=== PATIENT | female | born 1950 | race Caucasian/White ===

== ENCOUNTER → 2021-06-30 12:34 | Outpatient (BNVA) | payer MEDICARE, SELFPAY | PROVIDERS: Visit Provider Nurse Practitioner | DX: J02.9 Acute pharyngitis, unspecified (principal) | CPT/HCPCS: 87880 ==

== ENCOUNTER → 2021-07-13 14:43 | Outpatient (BNVA) | payer MEDICARE, SELFPAY | PROVIDERS: Visit Provider Nurse Practitioner | DX: Z20.822 Contact with and (suspected) exposure to COVID-19 (principal) | CPT/HCPCS: 87635 ==

== ENCOUNTER → 2021-07-17 11:08 | Outpatient (BNVA) | payer MEDICARE, SELFPAY | PROVIDERS: Visit Provider Nurse Practitioner Family | DX: R05.9 Cough, unspecified (principal); R50.9 Fever, unspecified | CPT/HCPCS: 87400 ==

== ENCOUNTER 2021-07-21 00:53 | Emergency (ER) | payer MEDICARE, SELFPAY ==
[2021-07-21 00:59] VITALS: BP 153/81; PULSE 83; RESP 18; TEMP 36.9; O2SAT 93; BMI 31.3
--- NOTE | 2021-07-21 01:07 | XRR_ITS ---
PROCEDURE INFORMATION: Exam: XR Chest Exam date and time: 07/21/2021 1:07 AM Age: 70 years old Clinical indication: Dyspnea; Additional info: Short of breath TECHNIQUE: Imaging protocol: XR of the chest. Views: 1 view. COMPARISON: No relevant prior studies available. FINDINGS: Lungs: There are mildly increased peribronchial markings present bilaterally and some increased interstitial opacity seen in the right mid and lower hemithorax and left lower hemithorax. Some consolidation is seen in the retrocardiac region as well. These findings are compatible with a bilateral interstitial pneumonia. Pulmonary edema could have this appearance. Pleural spaces: Unremarkable. No pleural effusion. No pneumothorax. Heart/Mediastinum: Unremarkable. No cardiomegaly. Bones/joints: Degenerative changes are seen within the glenohumeral joints bilaterally. XR/XR chest 1V portable [id number] IMPRESSION: Interstitial opacities in the lower hemithoraces bilaterally with consolidation present in the retrocardiac region, findings compatible with a bilateral interstitial pneumonia. Pulmonary edema could have this appearance.
[2021-07-21 01:58] LABS: Hematocrit 41.7 % (37.0-47.0); Hemoglobin 13.2 g/dL (11.5-15.3); Lymphocytes # 0.4 10^3/uL (0.8-4.8); Lymphocytes % 5.6 %; Mean Corpuscular HGB Conc 31.7 g/dL (30.0-36.0); Mean Corpuscular Hemoglobin 27.8 pg (28.0-34.0); Mean Platelet Volume 9.8 fL (7.4-10.4); Monocytes # 0.3 10^3/uL (0.2-0.9); Monocytes % 4.8 %; Neutrophils # 6.33 10^3/uL (1.8-7.7); Neutrophils % 89.2 %; Nucleated Red Blood Cells % 0 %; Platelet Count 185 10^3/cmm (130-400); Red Blood Count 4.74 10^6/uL (4.1-5.3); Red Cell Distribution Width 13.7 % (12.1-15.1); White Blood Count 7.1 10^3/uL (4.0-10.0)
[2021-07-21 02:18] LABS: Troponin T (5th) Once 13 ng/L (0-10)
[2021-07-21 02:26] LABS: Add Urine Microscopic? NO; Charge for UA Resulting for Rev
[2021-07-21 02:35] LABS: Alanine Aminotransferase 15 U/L (0-33); Albumin Level 3.6 g/dL (3.5-5.2); Alkaline Phosphatase 49 IU/L (35-105); Anion Gap 17.1 (5-19); Aspartate Amino Transferase 32 U/L (0-32); Blood Urea Nitrogen 23 mg/dL (8-23); C Reactive Protein 100.3 mg/L (0.0-4.9); Calcium 8.4 mg/dL (8.5-10.5); Carbon Dioxide 25 mmol/L (22-29); Chloride 99 mmol/L (98-107); Globulin 3.7 g/dL (1.3-4.6); Glucose 124 mg/dL (65-115); Osmolality Calculated 289 mOsm/kg (285-295); Potassium 4.1 mmol/L (3.5-5.1); Sodium 137 mmol/L (136-145); Total Bilirubin 0.4 mg/dL (0.15-1.2); Total Protein 7.3 g/dL (6.6-8.7)
[2021-07-21 02:50] LABS: Bilirubin Urine Neg (Negative); Blood Urine Neg (Negative); Glucose Urine UA Norm (Normal); Ketones Urine Negative (Negative); Leukocyte Esterase Urine Negative (Negative); Nitrate Urine Negative (Negative); Protein Urine Neg (Negative); Urine Appearance Clear (CLEAR); Urine Color Yellow (Yellow); Urobilinogen Urine Norm (Negative); pH Urine 5 (5-7)
--- NOTE | 2021-07-21 02:56 | CTR_ITS ---
PROCEDURE INFORMATION: Exam: CTA Chest With Contrast Exam date and time: 07/21/2021 2:56 AM Age: 70 years old Clinical indication: Dyspnea; Additional info: SOB TECHNIQUE: Imaging protocol: Computed tomographic angiography of the chest with contrast. 3D rendering (Not supervised by radiologist): MIP and/or 3D reconstructed images were created by the technologist. Radiation optimization: All CT scans at this facility use at least one of these dose optimization techniques: automated exposure control; mA and/or kV adjustment per patient size (includes targeted exams where dose is matched to clinical indication); or iterative reconstruction. Contrast material: OMNI 350; Contrast volume: 95 ml; Contrast route: INTRAVENOUS (IV); COMPARISON: CR (CHEST, ) 07/21/2021 2:49 AM RADIATION DOSE METRICS: Total DLP (mGy-cm): 564.78 FINDINGS: Pulmonary arteries: Normal. No pulmonary emboli. Aorta: Unremarkable. No aortic aneurysm. No aortic dissection. Lungs: A prominent calcifications seen within the left upper hemithorax measuring up to 12.1 mm. There patchy bilateral ground-glass opacities present, findings compatible with a patchy bilateral interstitial pneumonia. Pleural spaces: Unremarkable. No pneumothorax. No pleural effusion. Heart: Unremarkable. No cardiomegaly. No pericardial effusion. Lymph nodes: Unremarkable. No enlarged lymph nodes. Bones/joints: Unremarkable. No acute fracture. Soft tissues: Unremarkable. CT/CT angio chest PE protcl [id number] IMPRESSION: 1. There is no evidence for pulmonary emboli. 2. Patchy bilateral ground-glass opacities compatible with bilateral interstitial pneumonia. Commonly reported imaging features of COVID-19 pneumonia are present. Other processes such as influenza pneumonia and organizing pneumonia, as can be seen with drug toxicity and connective tissue disease, can cause a similar imaging pattern. (Reference: Ge) REFERENCES: Ge Taylor, et al., Radiological Society of [place] Expert Consensus Statement on Reporting Chest CT Findings Related to COVID-19. Endorsed by the Society of Thoracic Radiology, the [employer], and RSNA. Published October 19, 2019.
[2021-07-21] MEDS: iohexol 350 mg/mL 100 mL Btl IV (03:18)
[2021-07-21 04:16] LABS: D Dimer 0.76 ug/mIFEU (0-0.59)
--- NOTE | 2021-07-21 04:20 | ED_ITS ---
HPI - SOB/Dyspnea General: Chief Complaint: Shortness of Breath/Dyspnea Stated Complaint: PT Thinks dehydrated Time Seen by Provider: 07/21/21 02:31 History of Present Illness: HPI Narrative: 70-year-old female has been ill over 10 days. She presents with shortness of breath that has worsened over several days. She denies significant fever. She tested negative last week for COVID-19. She was treated for streptococcal pharyngitis as she had had a sore throat. She was then given an antibiotic and steroids for pneumonia diagnosed clinically. Despite this, she has continued to have worsening shortness of breath. She has some generalized weakness as well, and feels that she is dehydrated as she has had little p.o. intake the last day or 2. MD elicited complaint: shortness of breath, cough and pain with inspiration Pertinent past history: other Onset (ago): day(s) Context: recent illness Timing: progressively worsening Severity: moderate Exacerbating factors: lying flat and exertion Relieving factors: rest Associated symptoms: Reports chest congestion, chest pain, cough, diaphoresis and nausea; Deny abdominal pain, extremity pain, fever(s), hemoptysis or vomiting Review of Systems Const: Reports: diaphoresis; Denies: fever(s) Card: Reports: chest pain Resp: Reports: chest congestion; Denies: hemoptysis GI: Reports: nausea; Denies: abdominal pain or vomiting Musc: Denies: extremity pain Physical Exam Const: COMMON NORMALS: no acute distress, patient oriented x3 and alert HENMT: COMMON NORMALS: normocephalic, atraumatic and Normal external nose present HEAD & SCALP: normocephalic and atraumatic FACE & SINUS: normal facial exam and face symmetric NOSE: Normal external nose present and Normal nares present Eye: COMMON NORMALS: Equal, round and reactive pupils present and EOMs intact bilaterally PUPIL: Yes Equal, round and reactive pupils present Resp: COMMON NORMALS: No use of accessory muscles and clear to auscultation bilaterally EFFORT & INSPECTION: Yes tachypneic AUSCULTATION: clear to auscultation bilaterally, no rales, no rhonchi and diminished lung sounds Cardio: COMMON NORMALS: regular rate and regular rhythm RATE: regular rate RHYTHM: regular rhythm GI: COMMON NORMALS: Normal to inspection, nondistended, normoactive bowel sounds present, Soft to palpation and non-tender PALPATION: Yes Soft to palpation Neuro: COMMON NORMALS: patient oriented x3 SENSORIUM/ORIENTATION: Yes alert Course Vital Signs: Vital signs: Vital Signs Temperature 98.5 F 07/21/21 00:59 Pulse Rate 78 07/21/21 08:14 Respiratory Rate 18 07/21/21 08:14 Blood Pressure 142/64 07/21/21 08:14 Pulse Oximetry 94 07/21/21 08:14 MDM - SOB/Dyspnea MDM Narrative: Medical decision making narrative: Chest x-ray shows bilateral pneumonitis. CTA is negative for pulmonary emboli, but again patchy bilateral groundglass opacities are noted. This is suggestive of COVID-19 or other atypical pneumonia. PCR is pending for COVID-19. Patient has failed outpatient treatment with Levaquin and prednisone. She is requiring oxygen now, on 3 L satting 92%. She does not normally require oxygen. Currently she is normotensive. She will be admitted for hypoxic respiratory failure with COVID- 19 pneumonia. Counseling the patient, and her daughter, that she would be on Covid precautions in the floor, and the daughter would not be able to stay with her in her room, the patient decided she wanted to go home, for going inpatient treatment for COVID-19. Order was written for home oxygen, and she was discharged Lab Data: Labs: Lab Results 07/21/21 07/21/21 07/21/21 01:45 01:45 01:45 WBC 7.1 10^3/uL 10^3/ uL (4.0-10.0) RBC 4.74 10^6/uL 10^6 /uL (4.1-5.3) Hgb 13.2 g/dL g/dL (11.5-15.3) Hct 41.7 % % (37.0-47.0) MCV 88.0 fl fl (81-99) MCH 27.8 pg L pg (28.0-34.0) MCHC 31.7 g/dL g/dL (30.0-36.0) RDW 13.7 % % (12.1-15.1) Plt Count 185 10^3/cmm 10^3 /cmm (130-400) MPV 9.8 fL fL (7.4-10.4) Neut % (Auto) 89.2 % % Lymph % (Auto) 5.6 % % Dickens % (Auto) 4.8 % % Eos % (Auto) 0.0 % % Baso % (Auto) 0.0 % % Neut # (Auto) 6.33 10^3/uL 10^3 /uL (1.8-7.7) Lymph # (Auto) 0.4 10^3/uL L 10^ 3/uL (0.8-4.8) Dickens # (Auto) 0.3 10^3/uL 10^3/ uL (0.2-0.9) Eos # (Auto) 0.0 10^3/uL 10^3/ uL (0.0-0.8) Baso # (Auto) 0.0 10^3/uL 10^3/ uL (0.0-0.1) Nucleated RBC % (a uto) 0 % % Nucleated RBCs # 0.0 /100WBC /100W BC D-Dimer Sodium 137 mmol/L mmol/L (136-145) Potassium 4.1 mmol/L mmol/L (3.5-5.1) Chloride 99 mmol/L mmol/L (98-107) Carbon Dioxide 25 mmol/L mmol/L (22-29) Anion Gap 17.1 (5-19) BUN 23 mg/dL mg/dL (8-23) Creatinine 1.1 mg/dL H mg/dL (0.5-0.9) GFR Calculation Not Reportable Glucose 124 mg/dL H mg/dL (65-115) Calculated Osmolal ity 289 mOsm/kg mOsm/ kg (285-295) Lactate 2.0 mmol/L mmol/L (0.5-2.2) Calcium 8.4 mg/dL L mg/dL (8.5-10.5) Total Bilirubin 0.4 mg/dL mg/dL (0.15-1.2) AST 32 U/L U/L (0-32) ALT 15 U/L U/L (0-33) Alkaline Phosphata se 49 IU/L IU/L (35-105) Troponin T Gen 5 n g/L C-Reactive Protein 100.3 mg/L H mg/L (0.0-4.9) Total Protein 7.3 g/dL g/dL (6.6-8.7) Albumin 3.6 g/dL g/dL (3.5-5.2) Globulin 3.7 g/dL g/dL (1.3-4.6) Urine Color Urine Appearance Urine pH Ur Specific Gravit y Urine Protein Urine Glucose (UA) Urine Ketones Urine Blood Urine Nitrate Urine Bilirubin Urine Urobilinogen Ur Leukocyte Reyna ase Coronavirus 229E ( PCR) SARS-CoV-2 (PCR) 07/21/21 07/21/21 07/21/21 01:45 01:51 03:57 WBC RBC Hgb Hct MCV MCH MCHC RDW Plt Count MPV Neut % (Auto) Lymph % (Auto) Dickens % (Auto) Eos % (Auto) Baso % (Auto) Neut # (Auto) Lymph # (Auto) Dickens # (Auto) Eos # (Auto) Baso # (Auto) Nucleated RBC % (a uto) Nucleated RBCs # D-Dimer Sodium Potassium Chloride Carbon Dioxide Anion Gap BUN Creatinine GFR Calculation Glucose Calculated Osmolal ity Lactate Calcium Total Bilirubin AST ALT Alkaline Phosphata se Troponin T Gen 5 n g/L 13 ng/L H ng/L (0-10) C-Reactive Protein Total Protein Albumin Globulin Urine Color Yellow (Yellow) Urine Appearance Clear (CLEAR) Urine pH 5 (5-7) Ur Specific Gravit y 1.010 (1.005-1.030) Urine Protein Neg (Negative) Urine Glucose (UA) Norm (Normal) Urine Ketones Negative (Negative) Urine Blood Neg (Negative) Urine Nitrate Negative (Negative) Urine Bilirubin Neg (Negative) Urine Urobilinogen Norm mg/dL mg/dL (Negative) Ur Leukocyte Reyna ase Negative (Negative) Coronavirus 229E ( PCR) Not detected (NOT DETECT) SARS-CoV-2 (PCR) Detected A (NOT DETECT) 07/21/21 03:57 WBC RBC Hgb Hct MCV MCH MCHC RDW Plt Count MPV Neut % (Auto) Lymph % (Auto) Dickens % (Auto) Eos % (Auto) Baso % (Auto) Neut # (Auto) Lymph # (Auto) Dickens # (Auto) Eos # (Auto) Baso # (Auto) Nucleated RBC % (a uto) Nucleated RBCs # D-Dimer 0.76 ug/mIFEU H u g/mIFEU (0-0.59) Sodium Potassium Chloride Carbon Dioxide Anion Gap BUN Creatinine GFR Calculation Glucose Calculated Osmolal ity Lactate Calcium Total Bilirubin AST ALT Alkaline Phosphata se Troponin T Gen 5 n g/L C-Reactive Protein Total Protein Albumin Globulin Urine Color Urine Appearance Urine pH Ur Specific Gravit y Urine Protein Urine Glucose (UA) Urine Ketones Urine Blood Urine Nitrate Urine Bilirubin Urine Urobilinogen Ur Leukocyte Reyna ase Coronavirus 229E ( PCR) SARS-CoV-2 (PCR) Discharge Plan Discharge Patient Disposition: Home Clinical Impression: Pneumonia due to 2019 novel coronavirus, Hypoxemia Condition: Fair Prescriptions: New Zofran 4 mg tablet 4 mg PO TID PRN (Reason: nausea and vomiting) 4 Days Qty: 12 RF: 0 acetaminophen 500 mg tablet 500 mg PO Q6H PRN (Reason: pain) 5 Days Qty: 20 RF: 0 prednisone 50 mg tablet 50 mg PO DAILY 3 Days RF: 0 No Action ketotifen fumarate [Zaditor] 0.025 % (0.035 %) drops 1 drp ophthalmic (eye) BID Qty: 5 RF: 1 levofloxacin 750 mg tablet 750 mg PO Q24H 7 Days Qty: 7 RF: 0 prednisone 20 mg tablet 40 mg PO DAILY 5 Days Qty: 10 RF: 0 albuterol sulfate 90 mcg/actuation HFA aerosol inhaler 2 inh inhalation Q4H Qty: 8.5 RF: 2 Discharge Orders: Discharge ED (Routine); Ordered 07/21/21 Ordered By: Dave James Other Ambulatory Orders: DME: Oxygen (Order) Location: None Selected Ordered By: Dave aJmes Discharge Diet: Advance as tolerated Discharge Activity: Resume usual activity Patient Instructions: COVID-19 (Coronavirus Disease 2019) (ED) Activity Restrictions/Additional Instructions: Come back to the emergency room if your symptoms worsen, have any shortness of breath, fever/chills, dehydration, inability tolerate p.o., any difficulty breathing, or any new or concerning complaints. Please return the emergency room if your pulse ox reads less than 88%. Use oxygen at home as instructed. Coding Level of Care Code ED [facility]ator [employer] [facility] for [facility] Fwd Exam Detailed
[2021-07-21 05:25] VITALS: BP 142/64; PULSE 78; RESP 18; O2SAT 94
[2021-07-21 05:41] LABS: Adenovirus Not Detected (NOT DETECT); Chlamydia Pneumoniae Not Detected (NOT DETECT); Coronavirus 229E,HKU1,NL63,OC4 Not Detected (NOT DETECT); Human Metapneumovirus Not Detected (NOT DETECT); Human Rhinovirus/Enterovirus Not Detected (NOT DETECT); Influenza A Not Detected (NOT DETECT); Influenza A H1 Not Detected (NOT DETECT); Influenza A H1-2009 Not Detected (NOT DETECT); Influenza A H3 Not Detected (NOT DETECT); Influenza B Not Detected (NOT DETECT); Mycoplasma Pneumoniae Not Detected (NOT DETECT); Parainfluenza Virus Type 1 Not Detected (NOT DETECT); Parainfluenza Virus Type 2 Not Detected (NOT DETECT); Parainfluenza Virus Type 3 Not Detected (NOT DETECT); Parainfluenza Virus Type 4 Not Detected (NOT DETECT); Respiratory Syncytial Virus A Not Detected (NOT DETECT); Respiratory Syncytial Virus B Not Detected (NOT DETECT); SARS-COV-2 Detected (NOT DETECT)
--- NOTE | 2021-07-21 06:39 | PC.NURSE ---
report given to matt ABARCA
[2021-07-21 06:46] VITALS: O2SAT 88
--- NOTE | 2021-07-21 07:45 | PC.NURSE ---
Patient given pulse oximetry for home use.
[2021-07-21 08:14] VITALS: BP 142/64; PULSE 78; RESP 18; O2SAT 94
--- NOTE | 2021-07-23 09:48 | DCPLANNER ---
manager party had message to schedule a follow up appointment for patient with primary care within the next 72 hours. Patient came back to ER and was admitted to the ICU, field case manager did not make a follow up appointment.
== END 2021-07-21 08:17 | disposition home or self-care (01) ==
PROVIDERS: Nurse Practitioner Family; Emergency Provider Emergency Medicine
DX: U07.1 COVID-19 (principal); J12.82 Pneumonia due to coronavirus disease 2019; R09.02 Hypoxemia
CPT/HCPCS: 71045; 71275; 80053; 81003; 83605; 84484; 85025; 85378; 86140; 87635; 99283; Q9967

== ENCOUNTER 2021-07-22 08:14 | Inpatient (IN) | payer MEDICARE, SELFPAY ==
[2021-07-22] VITALS (46 sets, daily range): BP systolic 91–147; BP diastolic 40–82; PULSE 39–101; RESP 8–41; TEMP 35.8–37.8; O2SAT 89–99; BMI 31.3
--- NOTE | 2021-07-22 08:40 | XR_ITS ---
WS: [id number] Portable AP upright chest, 07/22/2021 Clinical Data: COVID/acute resp failure Comparison: Portable chest, 07/21/2021 Findings: The bilateral pulmonary opacities have increased especially in the right upper lobe and lef t lower lobe. The heart remains enlarged. No nodules, masses or effusions are seen. Monitor leads are on the chest wall. The patient's clothing obscures minimal detail over the middle of the chest. XR/XR chest 1V portable [id number] Impression: Increasing bilateral pulmonary opacities consistent with pneumonia.
--- NOTE | 2021-07-22 08:40 | ECG_ITS ---
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 Measurements Intervals [place] Rate: 95 P: 22 UT: 153 QRS: -19 QRSD: 91 T: 0 QT: 315 QTc: 397 Interpretive Statements SINUS RHYTHM MODERATE VOLTAGE CRITERIA FOR LVH, CONSIDER NORMAL VARIANT [MEETS CRITERIA IN ONE OF: R(aVL), S(V1), R(V5), R(V5/V6)+S(V1)] No previous ECG available for comparison Electronically Signed On 07-22-2021 15:30:04 DETECTIVE NARCOTICS AND VICE by Radhika Peña M.D. [id number]
[2021-07-22 08:59] LABS: Basophils % 0.2 %; Hematocrit 41.7 % (37.0-47.0); Hemoglobin 13.3 g/dL (11.5-15.3); Lymphocytes # 0.7 10^3/uL (0.8-4.8); Lymphocytes % 10.9 %; Mean Corpuscular HGB Conc 31.9 g/dL (30.0-36.0); Mean Corpuscular Hemoglobin 27.6 pg (28.0-34.0); Mean Corpuscular Volume 86.5 fl (81-99); Mean Platelet Volume 9.5 fL (7.4-10.4); Monocytes # 0.4 10^3/uL (0.2-0.9); Monocytes % 6.5 %; Neutrophils # 5.43 10^3/uL (1.8-7.7); Neutrophils % 81.9 %; Nucleated Red Blood Cells % 0 %; Platelet Count 198 10^3/cmm (130-400); Red Blood Count 4.82 10^6/uL (4.1-5.3); Red Cell Distribution Width 13.9 % (12.1-15.1); White Blood Count 6.6 10^3/uL (4.0-10.0)
--- NOTE | 2021-07-22 09:06 | W.ED.COVID ---
HPI - COVID General: Chief Complaint: COVID symptoms Stated Complaint: COVID SYMPTOMS Time Seen by Provider: 07/22/21 08:21 Triage information: No fever, cough or shortness of breath. No known COVID + exposure last 14 days History of Present Illness: HPI Narrative: 70-year-old female returns to the emergency room via ambulance. She was here little over 24 hours ago at that time she was tested for Covid and was positive she did have some mild hypoxemia which is amenable to outpatient treatment with home oxygen. She is discharged home with oxygen at 3 L/min. She was advised to be admitted to the hospital but refused because she was not going to be allowed visitors because she was Covid positive. Her breathing worsened at home when she called EMS on their arrival she is on 4 L/min by nasal cannula and satting in the mid to upper 70s. On arrival here she is on 15 L by nonrebreather and is still satting mid to upper 80s. With any exertion or even brief conversation she desats to the low 80s. Patient denies any chest pain. She has had some diarrhea. She did have a CTA of the chest yesterday which was negative for pulmonary emboli. MD complaint: known COVID positive Prior covid testing: yes, results known Prior testing date: 07/21/21 COVID 19 common symptoms: positive fever(s), chills, cough, non-productive cough, dyspnea, fatigue, body aches, loss of sense of smell and/or taste, throat pain, nasal congestion, nausea and diarrhea COVID 19 other sytmptoms: positive requiring oxygen and requiring more oxygen; negative chest pain Pertinent comorbid conditions: hypertension and heart disease Treatment prior to arrival: none COVID Results: SARS-CoV-2 RNA (RT-PCR) Not detected (NOT DETECTED) 07/13/21 14:43 07/13/21 Review of Systems Const: Reports: fever(s), chills, body aches and fatigue ENMT: Reports: throat pain and nasal congestion Card: Denies: chest pain, edema, dyspnea on exertion or orthopnea Resp: Reports: dyspnea and non-productive cough GI: Reports: nausea and diarrhea : Denies: flank pain, difficulty voiding, dysuria, urinary frequency or urinary urgency Skin/Breast: Denies: rash or pruritus PFS ED PFSH: Medical History (Updated 07/22/21 @ 10:58 by Deon Tomlinson DO) Cough Hypoxemia Pneumonia due to 2019 novel coronavirus Social History (Updated 07/22/21 @ 09:10 by Deon Tomlinson DO) Smoking and tobacco status: never smoked Alcohol intake: never Physical Exam Const: GENERAL APPEARANCE: cooperative ORIENTATION/CONSCIOUSNESS: Yes awake, Yes oriented to person, Yes oriented to place and Yes oriented to time HENMT: COMMON NORMALS: normocephalic, atraumatic and hearing grossly normal bilaterally HEAD & SCALP: normocephalic and atraumatic Resp: COMMON NORMALS: normal respiratory effort, No retractions, No use of accessory muscles and clear to auscultation bilaterally AUSCULTATION: clear to auscultation bilaterally Cardio: COMMON NORMALS: regular rate, regular rhythm and No murmurs present (Cardio) RATE: regular rate RHYTHM: regular rhythm GI: COMMON NORMALS: Soft to palpation and No hepatosplenomegaly present AUSCULTATION: Yes normoactive bowel sounds PALPATION: Yes Soft to palpation, No Tenderness to palpation present (GI), No Guarding due to palpation present (GI) and Yes No hepatosplenomegaly present Extremity: COMMON NORMALS: normal to inspection, capillary refill normal, no clubbing, cyanosis or edema, no calf tenderness and no pedal edema Neuro: SENSORIUM/ORIENTATION: Yes oriented to person, Yes oriented to place and Yes oriented to time Skin: COMMON NORMALS: no rashes or lesions noted GENERAL SKIN EXAM: no rashes or lesions noted Course Vital Signs: Vital signs: Vital Signs Temperature 100.0 F H 07/22/21 10:10 Pulse Rate 92 07/22/21 10:51 Respiratory Rate 24 H 07/22/21 10:51 Blood Pressure 147/61 07/22/21 10:51 Pulse Oximetry 92 07/22/21 10:51 MDM - COVID MDM Narrative: Medical decision making narrative: Patient previously tested positive for Covid she has significant respiratory distress acute respiratory failure with hypoxia even with mask. We switch her initially to heated high flow which improved her oxygenation slightly but she continues to have significant work of breathing. We will switch her to a BiPAP for now. Discussed with Dr. Pritchett orders are written recommend starting remdesivir and dexamethasone. Discussed with the patient. She is amenable to intubation and maintenance on a ventilator if needed. Lab Data: Labs: Lab Results 07/22/21 07/22/21 07/22/21 08:48 08:48 08:48 WBC 6.6 10^3/uL 10^3/ uL (4.0-10.0) RBC 4.82 10^6/uL 10^6 /uL (4.1-5.3) Hgb 13.3 g/dL g/dL (11.5-15.3) Hct 41.7 % % (37.0-47.0) MCV 86.5 fl fl (81-99) MCH 27.6 pg L pg (28.0-34.0) MCHC 31.9 g/dL g/dL (30.0-36.0) RDW 13.9 % % (12.1-15.1) Plt Count 198 10^3/cmm 10^3 /cmm (130-400) MPV 9.5 fL fL (7.4-10.4) Neut % (Auto) 81.9 % % Lymph % (Auto) 10.9 % % [place] % (Auto) 6.5 % % Eos % (Auto) 0.0 % % Baso % (Auto) 0.2 % % Neut # (Auto) 5.43 10^3/uL 10^3 /uL (1.8-7.7) Lymph # (Auto) 0.7 10^3/uL L 10^ 3/uL (0.8-4.8) [place] # (Auto) 0.4 10^3/uL 10^3/ uL (0.2-0.9) Eos # (Auto) 0.0 10^3/uL 10^3/ uL (0.0-0.8) Baso # (Auto) 0.0 10^3/uL 10^3/ uL (0.0-0.1) Nucleated RBC % (a uto) 0 % % Nucleated RBCs # 0.0 /100WBC /100W BC Sodium 141 mmol/L mmol/L (136-145) Potassium 3.9 mmol/L mmol/L (3.5-5.1) Chloride 102 mmol/L mmol/L (98-107) Carbon Dioxide 27 mmol/L mmol/L (22-29) Anion Gap 15.9 (5-19) BUN 26 mg/dL H mg/dL (8-23) Creatinine 1.0 mg/dL H mg/dL (0.5-0.9) GFR Calculation Not Reportable Glucose 72 mg/dL mg/dL (65-115) Calculated Osmolal ity 295 mOsm/kg mOsm/ kg (285-295) Lactic Acid 1.3 mmol/L mmol/L (0.5-2.2) Calcium 8.3 mg/dL L mg/dL (8.5-10.5) Total Bilirubin 0.5 mg/dL mg/dL (0.15-1.2) AST 28 U/L U/L (0-32) ALT 13 U/L U/L (0-33) Alkaline Phosphata se 44 IU/L IU/L (35-105) C-Reactive Protein 66.4 mg/L H mg/L (0.0-4.9) Total Protein 7.0 g/dL g/dL (6.6-8.7) Albumin 3.4 g/dL L g/dL (3.5-5.2) Globulin 3.6 g/dL g/dL (1.3-4.6) Procalcitonin 0.11 ng/mL ng/mL (0-0.5) COVID Results: SARS-CoV-2 RNA (RT-PCR) Not detected (NOT DETECTED) 07/13/21 14:43 07/13/21 Discharge Plan Discharge Patient Disposition: Admitted As Inpatient Admit Provider: Raman Reich Clinical Impression: Pneumonia due to 2019 novel coronavirus Condition: Stable Coding Level of Care Code ED System Development Manager for [facility] Fwd Exam Detailed
[2021-07-22] MEDS: dexamethasone 10 mg/mL INJ IVP (09:20)
[2021-07-22 09:23] LABS: Lactic Sepsis W/Reflex 1.3 mmol/L (0.5-2.2)
[2021-07-22 09:28] LABS: Alanine Aminotransferase 13 U/L (0-33); Albumin Level 3.4 g/dL (3.5-5.2); Alkaline Phosphatase 44 IU/L (35-105); Anion Gap 15.9 (5-19); Aspartate Amino Transferase 28 U/L (0-32); Blood Urea Nitrogen 26 mg/dL (8-23); C Reactive Protein 66.4 mg/L (0.0-4.9); Calcium 8.3 mg/dL (8.5-10.5); Carbon Dioxide 27 mmol/L (22-29); Chloride 102 mmol/L (98-107); Globulin 3.6 g/dL (1.3-4.6); Glucose 72 mg/dL (65-115); Osmolality Calculated 295 mOsm/kg (285-295); Potassium 3.9 mmol/L (3.5-5.1); Sodium 141 mmol/L (136-145); Total Bilirubin 0.5 mg/dL (0.15-1.2)
[2021-07-22 09:33] LABS: Procalcitonin 0.11 ng/mL (0-0.5)
[2021-07-22 10:55] LABS: Hematocrit 39.2 % (37.0-47.0); Hemoglobin 12.7 g/dL (11.5-15.3); Lymphocytes # 0.5 10^3/uL (0.8-4.8); Lymphocytes % 6.8 %; Mean Corpuscular HGB Conc 32.4 g/dL (30.0-36.0); Mean Corpuscular Hemoglobin 27.5 pg (28.0-34.0); Mean Corpuscular Volume 84.8 fl (81-99); Mean Platelet Volume 9.7 fL (7.4-10.4); Monocytes # 0.5 10^3/uL (0.2-0.9); Neutrophils # 6.47 10^3/uL (1.8-7.7); Neutrophils % 86.8 %; Nucleated Red Blood Cells % 0 %; Platelet Count 199 10^3/cmm (130-400); Red Blood Count 4.62 10^6/uL (4.1-5.3); White Blood Count 7.5 10^3/uL (4.0-10.0)
[2021-07-22 11:18] LABS: D Dimer 1.33 ug/mIFEU (0-0.59)
[2021-07-22] MEDS: remdesivir 200 MG in sodium chloride 0.9% (100 ml) 60 ML 100 MG IV (11:51)
--- NOTE | 2021-07-22 12:27 | PM.HP ---
Providers/Chief Complaint Admitting Physician: Raman Reich Chief Complaint: COVID SYMPTOMS History of Present Illness Bhavya King is a 70 year old female with past medical history of obesity, hypertension who presents with complaints of shortness of breath. She reports that her symptoms started about 8 days ago. Initially mild they progressively got worse and described as very severe today. She reports shortness of breath, cough, chills, fever, upper respiratory symptoms, congestion. In emergency room she is severely hypoxic. She did not improve with supplemental oxygen only. She did not tolerate high flow oxygen. Eventually she was started on BiPAP. Her chest x-ray and CT revealed bilateral pneumonia consistent with Covid. Testing came back positive. The patient also has mild to moderate confusion. Unable to focus on the conversation for long. She denies any chest pain, palpitations, hemoptysis, nausea, vomiting, diarrhea. She denies history of diabetes, steroids, immunosuppression. She denies similar episodes in the past. Review of Systems General: Reports: 10 or more systems reviewed and unremarkable except in HPI and below Medications/Allergies Home Medications Medication Instructions Recorded Confirmed Last Taken Type albuterol sulfate 90 mcg/actuation 2 inh INHALATION Q4H #8.5 g 07/17/21 07/22/21 Unknown Rx aerosol inhaler ketotifen fumarate 0.025 % (0.035 1 drp OPHTHALMIC (EYE) BID #5 ml 07/17/21 07/22/21 Unknown Rx %) eye drops prednisone 20 mg tablet 40 mg PO DAILY 5 Days #10 tab 07/17/21 07/22/21 Unknown Rx acetaminophen 500 mg PO Q6H PRN 5 Days #20 tab 07/21/21 07/22/21 Unknown Rx ondansetron HCl [Zofran] 4 mg PO TID PRN 4 Days #12 tab 07/21/21 07/22/21 Unknown Rx prednisone 50 mg PO DAILY 3 Days tab 07/21/21 07/22/21 Unknown Rx cholecalciferol (vitamin D3) 25 mcg PO DAILY 07/22/21 07/22/21 Unknown History [Vitamin D3] cyanocobalamin (vitamin B-12) 1,000 mcg PO DAILY 07/22/21 07/22/21 Unknown History [Vitamin B-12] levofloxacin 750 mg PO Q24H 07/22/21 07/22/21 07/20/21 History vitamin A 10,000 unit PO DAILY 07/22/21 07/22/21 Unknown History Allergies Allergy/AdvReac Type Severity Reaction Status Date / Time No Known Allergies Allergy Verified 07/22/21 08:22 PFSH Acute PFSH: Medical History (Updated 07/22/21 @ 12:38 by Raman Reich) Cough Hypoxemia Pneumonia due to 2019 novel coronavirus Social History (Updated 07/22/21 @ 09:10 by Deon Tomlinson, DO) Smoking and tobacco status: never smoked Alcohol intake: never Vitals/I&O/Wt Last Vital Signs Temp 100.0 F H 07/22/21 10:10 Pulse 92 07/22/21 10:51 Resp 24 H 07/22/21 10:51 BP 147/61 07/22/21 10:51 Pulse Ox 92 07/22/21 10:51 Weight last 48 hrs Weight 93.44 kg Physical Exam Narrative: EXAM NARRATIVE: The patient is awake. Looks tired, slightly confused. Oriented x4. Mild to moderate distress secondary to shortness of breath. She is on BiPAP currently. Skin is warm and dry. Moist mucous membranes. Eyes PERRL, extraocular muscles are intact. Sclera normal. Neck is supple. No JVD. Lungs minimal bilateral crackles. Tachypnea. No accessory muscle use with BiPAP. Heart S1, S2, regular Abdomen soft, nontender, bowel sounds are present Extremities no edema, cyanosis, calf tenderness bilaterally. Normal speech. Neuro. No focal deficits. Data : 07/22/21 10:40 07/22/21 08:48 Other Labs: Laboratory Results WBC 7.5 10^3/uL (4.0-10.0) 07/22/21 10:40 RBC 4.62 10^6/uL (4.1-5.3) 07/22/21 10:40 Hgb 12.7 g/dL (11.5-15.3) 07/22/21 10:40 Hct 39.2 % (37.0-47.0) 07/22/21 10:40 MCV 84.8 fl (81-99) 07/22/21 10:40 MCH 27.5 pg (28.0-34.0) L 07/22/21 10:40 MCHC 32.4 g/dL (30.0-36.0) 07/22/21 10:40 RDW 14.0 % (12.1-15.1) 07/22/21 10:40 Plt Count 199 10^3/cmm (130-400) 07/22/21 10:40 MPV 9.7 fL (7.4-10.4) 07/22/21 10:40 Neut % (Auto) 86.8 % 07/22/21 10:40 Lymph % (Auto) 6.8 % 07/22/21 10:40 [place] % (Auto) 6.0 % 07/22/21 10:40 Eos % (Auto) 0.0 % 07/22/21 10:40 Baso % (Auto) 0.0 % 07/22/21 10:40 Neut # (Auto) 6.47 10^3/uL (1.8-7.7) 07/22/21 10:40 Lymph # (Auto) 0.5 10^3/uL (0.8-4.8) L 07/22/21 10:40 [place] # (Auto) 0.5 10^3/uL (0.2-0.9) 07/22/21 10:40 Eos # (Auto) 0.0 10^3/uL (0.0-0.8) 07/22/21 10:40 Baso # (Auto) 0.0 10^3/uL (0.0-0.1) 07/22/21 10:40 Nucleated RBC % (auto) 0 % 07/22/21 10:40 Nucleated RBCs # 0.0 /100WBC 07/22/21 10:40 D-Dimer 1.33 ug/mIFEU (0-0.59) H 07/22/21 10:40 Sodium 141 mmol/L (136-145) 07/22/21 08:48 Potassium 3.9 mmol/L (3.5-5.1) 07/22/21 08:48 Chloride 102 mmol/L (98-107) 07/22/21 08:48 Carbon Dioxide 27 mmol/L (22-29) 07/22/21 08:48 Anion Gap 15.9 (5-19) 07/22/21 08:48 BUN 26 mg/dL (8-23) H 07/22/21 08:48 Creatinine 1.0 mg/dL (0.5-0.9) H 07/22/21 08:48 GFR Calculation Not Reportable 07/22/21 08:48 Glucose 72 mg/dL (65-115) 07/22/21 08:48 Calculated Osmolality 295 mOsm/kg (285-295) 07/22/21 08:48 Lactic Acid 1.3 mmol/L (0.5-2.2) 07/22/21 08:48 Calcium 8.3 mg/dL (8.5-10.5) L 07/22/21 08:48 Total Bilirubin 0.5 mg/dL (0.15-1.2) 07/22/21 08:48 AST 28 U/L (0-32) 07/22/21 08:48 ALT 13 U/L (0-33) 07/22/21 08:48 Alkaline Phosphatase 44 IU/L (35-105) 07/22/21 08:48 C-Reactive Protein 66.4 mg/L (0.0-4.9) H 07/22/21 08:48 Total Protein 7.0 g/dL (6.6-8.7) 07/22/21 08:48 Albumin 3.4 g/dL (3.5-5.2) L 07/22/21 08:48 Globulin 3.6 g/dL (1.3-4.6) 07/22/21 08:48 Procalcitonin 0.11 ng/mL (0-0.5) 07/22/21 08:48 Impressions Chest X-Ray 07/22/21 08:40 Impression: Increasing bilateral pulmonary opacities consistent with pneumonia. Micro: Microbiology 07/22/21 10:45 Blood Culture - Preliminary Blood SPECIMEN COLLECTED 07/22/21 10:40 Blood Culture - Preliminary Blood SPECIMEN COLLECTED A&P Assessment and plan (1) Acute respiratory failure: Status: Acute (2) Hypoxia: Status: Acute (3) Pneumonia due to COVID-19 virus: Status: Acute (4) Acute metabolic encephalopathy: Status: Acute Additional A&P Information 70-year-old female with past medical history of hypertension, obesity presenting with shortness of breath, confusion, upper respiratory symptoms. The patient is found to have acute hypoxic respiratory failure secondary to bilateral COVID-19 pneumonia with associated acute metabolic encephalopathy. The patient is being admitted to ICU. We will continue respiratory support with BiPAP. Please see ACP discussions below. The patient will receive morphine and lorazepam for pain or sedation to be able to tolerate BiPAP mask. Discussed with the nursing staff and respiratory therapist. We will try to titrate oxygen to maintain saturation at 90-94. The patient was on prednisone at home after initial diagnosis of Covid several days ago. At that time she decided to go home and refused hospitalization. Currently her condition is more serious and chances of decompensation are very high. Starting Solu-Medrol 60 mg every 8 hours. Had a curbside discussion with Dr. Gagnon. He recommended to use 1 dose of Tocilizumab. We will continue remdesivir. We will try to avoid fluid overload. The patient at this point does not want to be intubated. DNI status is confirmed with daughter as well per patient's request. However the patient is okay with cardiac resuscitation. The patient was informed that she can change her mind at any point. We will continue monitoring inflammatory markers. DVT prophylaxis. We will start full dose of Lovenox. The plan of care was discussed with the patient and her daughter on the phone. They verbalized understanding and agreement with the current plan of care. They verbalized satisfaction with the conversation. Critical care time spent on this case is 60 minutes. Attestations Medical Necessity Statement*: The patient is being admitted in critical condition to ICU. I expect that the patient will spend more than 2 midnights in the hospital. 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
[2021-07-22] MEDS: famotidine 20 mg/2 mL INJ IVP (12:55)
[2021-07-22] MEDS: enoxaparin 100 mg/mL Syringe 90 MG SUBCUT (12:55)
[2021-07-22] MEDS: ascorbic acid 500 mg Tablet 1000 MG PO (18:24)
--- NOTE | 2021-07-22 18:46 | PC.NURSE ---
Shift Note: Pt arrived to ICU from Ed 1130. She has been resting in bed throughout the shift. She has been up to BSC once, bright yellow urinee noted. She started off on 100% FIO2 on BiPa, she is now at 75%. She denies pain. Loading dose of Remdesivir given in ICU, immediately after Tocilizumab given. While Tocilizumab finished bradycardia noted. Heart rate has dipped down low as 40 bpm. Pt asymptomatic throughout. Dr Reich notified. Remdesivir ordered changed, not to give if heart rate 60 or less. [place], son and a granddaughter both called for updates, updates given. Frequent safety and comfort rounds continue. Orders and/or nursing care completed as indicated. Patient monitored for response to intervention and treatment(s). Education provided includes Remdesivir, Tocilizumab, steriods, Lovenox, Pepcid, Vitamins, Isolation precautions and visiting, BIPap. Patient and/or medical customer service representative verbalized understanding of plan of care and medications Will continue to monitor.
[2021-07-23] VITALS (36 sets, daily range): BP systolic 103–143; BP diastolic 50–81; PULSE 44–121; RESP 14–27; TEMP 36.6–36.9; O2SAT 82–94; BMI 30.9
[2021-07-23] MEDS: enoxaparin 100 mg/mL Syringe 90 MG SUBCUT ×2 (02:00→13:16)
[2021-07-23] MEDS: famotidine 20 mg/2 mL INJ IVP ×2 (02:00→13:16)
[2021-07-23 04:46] LABS: Hemoglobin 12.8 g/dL (11.5-15.3); Lymphocytes # 0.6 10^3/uL (0.8-4.8); Lymphocytes % 11.1 %; Mean Corpuscular Hemoglobin 27.9 pg (28.0-34.0); Mean Corpuscular Volume 87.1 fl (81-99); Mean Platelet Volume 10.1 fL (7.4-10.4); Monocytes # 0.2 10^3/uL (0.2-0.9); Monocytes % 3.1 %; Neutrophils % 85.3 %; Nucleated Red Blood Cells % 0 %; Platelet Count 205 10^3/cmm (130-400); Red Blood Count 4.59 10^6/uL (4.1-5.3); Red Cell Distribution Width 13.9 % (12.1-15.1); White Blood Count 5.5 10^3/uL (4.0-10.0)
[2021-07-23 05:10] LABS: Alanine Aminotransferase 11 U/L (0-33); Alkaline Phosphatase 40 IU/L (35-105); Anion Gap 15.9 (5-19); Aspartate Amino Transferase 25 U/L (0-32); Blood Urea Nitrogen 27 mg/dL (8-23); Calcium 8.3 mg/dL (8.5-10.5); Carbon Dioxide 27 mmol/L (22-29); Chloride 103 mmol/L (98-107); Globulin 3.4 g/dL (1.3-4.6); Glucose 121 mg/dL (65-115); Osmolality Calculated 300 mOsm/kg (285-295); Potassium 3.9 mmol/L (3.5-5.1); Sodium 142 mmol/L (136-145); Total Bilirubin 0.4 mg/dL (0.15-1.2); Total Protein 6.4 g/dL (6.6-8.7)
--- NOTE | 2021-07-23 05:54 | PC.NURSE ---
Shift Note Frequent safety and comfort rounds continue. Orders and/or nursing care completed as indicated. Patient monitored for response to intervention and treatment(s). Education provided includes heated high flow and medications. Patient verbalizes understanding of teaching. Patient remains alert and oriented x4, on heated high flow 45L and 60% FiO2, no wounds/skin issues noted at this time. Patient noted to sleep throughout night without complaints of pain. Will continue to monitor.
--- NOTE | 2021-07-23 07:00 | XRR_ITS ---
PROCEDURE INFORMATION: Exam: XR Chest Exam date and time: 07/23/2021 7:00 AM Age: 70 years old Clinical indication: Dyspnea; Additional info: Pna covid TECHNIQUE: Imaging protocol: XR of the chest. Views: 1 view. Total images: 1 COMPARISON: CR XR chest 1V portable [id number] 07/22/2021 9:01 AM FINDINGS: Lungs: Bilateral pulmonary opacities are again noted and appear unchanged. Pleural spaces: Unremarkable. No pleural effusion. No pneumothorax. Heart/Mediastinum: Heart size is stable when compared to the prior exam. Bones/joints: Osseous structures are unchanged from the prior exam. XR/XR chest 1V portable [id number] IMPRESSION: Bilateral pulmonary opacities are again noted and appear unchanged.
[2021-07-23 07:36] LABS: C Reactive Protein 112.7 mg/L (0.0-4.9); Magnesium 2.2 mg/dL (1.7-2.3); NT Pro B Type Natriuretic Pept 544 pg/mL (0-125)
[2021-07-23] MEDS: zinc gluconate 50 mg Tablet PO (08:46)
[2021-07-23] MEDS: cyanocobalamin 1,000 mcg Tablet 1000 MCG PO (08:46)
[2021-07-23] MEDS: ascorbic acid 500 mg Tablet 1000 MG PO ×2 (08:46→18:05)
[2021-07-23] MEDS: cholecalciferol (vitamin D3) 1,000 unit Tablet 1000 UNIT PO (08:47)
--- NOTE | 2021-07-23 11:19 | P.PN_ITS ---
Subjective Subjective: Interval history: The patient reports feeling better today. She is on high flow oxygen. Reports improved shortness of breath. Reports cough. No chest pain or palpitations. No nausea or vomiting. Remdesivir was held due to bradycardia. Denies dizziness or lightheadedness. Medications: Reviewed: Yes Medication Review Details: Generic Name Dose Route Start Last Admin Trade Name Anthonyq PRN Reason Stop Dose Admin Ascorbic Acid 1,000 mg 07/22/21 18:00 07/23/21 08:46 Ascorbic Acid 50 0 Mg Tablet PO 1,000 mg BID ARIE Administration Cyanocobalamin 1,000 mcg 07/23/21 09:00 07/23/21 08:46 Cyanocobalamin 1 ,000 Mcg Tablet PO 1,000 mcg DAILY ARIE Administration Enoxaparin Sodium 90 mg 07/22/21 13:00 07/23/21 02:00 Enoxaparin 100 M g/Ml Syringe 1 mg/kg (90 mg) 90 mg SUBCUT Administration Q12H ARIE Famotidine 20 mg 07/22/21 13:00 07/23/21 02:00 Famotidine 20 Mg /2 Ml Inj IVP 20 mg Q12H ARIE Administration Remdesivir 100 mg/ Sodium 100 mls @ 100 mls /hr 07/23/21 06:00 07/23/21 06:23 Chloride IV 07/26/21 06:59 Not Given Q24H [facility] Methylprednisolone Sodium Succinate 60 mg 07/22/21 13:00 07/23/21 05:45 Methylprednisolo ne Sod Succ 125 Mg /2 Ml Inj IVP 60 mg Q8H ARIE Administration Fluticasone/Salmet lukasz 1 puff 07/22/21 20:00 07/22/21 20:08 Fluticasone-Salm eterol 250-50 Disk us INHALATION 1 puff BID.RESPIRATORY S CH Administration Vitamin D 1,000 unit 07/23/21 09:00 07/23/21 08:47 Cholecalciferol (Vitamin D3) 1,000 Unit Tablet PO 1,000 unit DAILY ARIE Administration Zinc Gluconate 50 mg 07/23/21 09:00 07/23/21 08:46 Zinc Gluconate 5 0 Mg Tablet PO 50 mg DAILY ARIE Administration Vitals/I&O/Wt Last Vital Signs Temp 98.2 F 07/23/21 08:00 Pulse 58 L 07/23/21 11:00 Resp 22 H 07/23/21 11:00 BP 119/64 07/23/21 11:00 Pulse Ox 90 07/23/21 11:00 07/22/21 07/23/21 07/23/21 22:59 06:59 14:59 Intake Total 250 / 410 240 / 650 500 / 500 Output Total 350 / 350 Balance -100 / 60 240 / 300 500 / 500 Weight last 48 hrs Weight 92.221 kg Weight 93.44 kg Physical Exam Narrative: EXAM NARRATIVE: The patient is awake, alert and oriented. Responses are adequate. Mood and affect are appropriate. No acute distress. Skin is warm and dry. Moist mucous membranes. Eyes PERRL, extraocular muscles are intact. Sclera normal. Neck is supple. No JVD. Lungs minimal bilateral crackles. Off BiPAP. No tachypnea. On high flow oxygen. Heart S1, S2, regular Abdomen soft, nontender, bowel sounds are present Extremities no edema, cyanosis, calf tenderness bilaterally. Normal speech. Neuro. No focal deficits. Data : 07/23/21 04:44 07/23/21 04:44 Micro: Microbiology 07/22/21 10:45 Blood Culture - Preliminary Blood NEGATIVE TO DATE 07/22/21 10:40 Blood Culture - Preliminary Blood NEGATIVE TO DATE A&P Assessment and plan (1) Acute respiratory failure: Status: Acute (2) Hypoxia: Status: Acute (3) Pneumonia due to COVID-19 virus: Status: Acute (4) Acute metabolic encephalopathy: Status: Acute Additional A&P Information 70-year-old female with past medical history of hypertension, obesity presenting with shortness of breath, confusion, upper respiratory symptoms. The patient is found to have acute hypoxic respiratory failure secondary to bilateral COVID-19 pneumonia with associated acute metabolic encephalopathy. Acute hypoxic respiratory failure secondary to COVID-19 pneumonia. Stabilized. Off BiPAP. Continue high flow oxygen. Continue steroids. Remdesivir was held due to bradycardia. However will continue if the heart rate allows. Continue v itamins. Acute metabolic encephalopathy. Probably due to the above. Currently resolved. Continue close monitoring DVT prophylaxis. full dose of Lovenox. The plan of care was discussed with the patient. She verbalized understanding and agreement with the current plan of care. Critical care time spent on this case is 35 minutes. Attestations Medical Necessity Statement*: Current plan of care requires that the patient remains hospitalized. Coding Level of Care Code Acute Cook Soup for g Fwd Diagnoses Acute respiratory failure J96.00 Hypoxia R09.02 Pneumonia due to COVID-19 virus U07.1; J12.82 Acute metabolic encephalopathy G93.41
--- NOTE | 2021-07-23 18:45 | PC.NURSE ---
Shift Note: Pt up to chair before breakfast. She has rested in chair throughout shift. She remains on heated high flow at 45 Liters and 60% FIO2. She is tolerating that well. She has been as low as 85% O2 sats , when she is up moving around, she recovers quickly. She stated she felt much better today. Lung sounds went from inspiratory wheezing to clear today She uses the IS and flutter valve on her own accord. She has been incontinent of stool (diarrhea) twice this morning. Urine output adequate. Frequent safety and comfort rounds continue. Orders and/or nursing care completed as indicated. Patient monitored for response to intervention and treatment(s). Education provided includes pericare, IS and flutter valve use, HHF, staying calm, vitamins.. Patient and/or specialty sales representative verbalized understanding of plan of care and medications. Will continue to monitor.
[2021-07-24] VITALS (29 sets, daily range): BP systolic 120–152; BP diastolic 60–95; PULSE 47–83; RESP 0–35; TEMP 35.9–36.8; O2SAT 84–94; BMI 30.7
[2021-07-24] MEDS: enoxaparin 100 mg/mL Syringe 90 MG SUBCUT ×2 (01:57→13:38)
[2021-07-24] MEDS: famotidine 20 mg/2 mL INJ IVP ×2 (01:57→13:38)
--- NOTE | 2021-07-24 04:21 | PC.NURSE ---
Shift Note Frequent safety and comfort rounds continue. Orders and/or nursing care completed as indicated. Patient monitored for response to intervention and treatment(s). Education provided includes heated high flow. Patient verbalized understanding of teaching. Patient had an uneventful shift, remains on heated high flow 45L and 60% FiO2. Patient desats to low 80's when transferring from bed to chair. Voided once this shift using bedside commode, transfers with moderate assistance. No wounds or skin issues noted at this time and no complaints of pain overnight. Will continue to monitor.
[2021-07-24 04:40] LABS: Hematocrit 40.1 % (37.0-47.0); Hemoglobin 12.9 g/dL (11.5-15.3); Lymphocytes # 0.6 10^3/uL (0.8-4.8); Lymphocytes % 9.9 %; Mean Corpuscular HGB Conc 32.2 g/dL (30.0-36.0); Mean Corpuscular Hemoglobin 27.6 pg (28.0-34.0); Mean Corpuscular Volume 85.7 fl (81-99); Mean Platelet Volume 9.9 fL (7.4-10.4); Monocytes # 0.4 10^3/uL (0.2-0.9); Monocytes % 6.5 %; Neutrophils # 5.27 10^3/uL (1.8-7.7); Nucleated Red Blood Cells % 0 %; Platelet Count 235 10^3/cmm (130-400); Red Blood Count 4.68 10^6/uL (4.1-5.3); Red Cell Distribution Width 13.7 % (12.1-15.1); White Blood Count 6.4 10^3/uL (4.0-10.0)
[2021-07-24 05:08] LABS: Albumin Level 2.8 g/dL (3.5-5.2); Anion Gap 16.8 (5-19); Blood Urea Nitrogen 32 mg/dL (8-23); Calcium 8.4 mg/dL (8.5-10.5); Carbon Dioxide 24 mmol/L (22-29); Chloride 105 mmol/L (98-107); Glucose 146 mg/dL (65-115); Phosphorus 3.3 mg/dL (2.5-4.5); Potassium 3.8 mmol/L (3.5-5.1); Sodium 142 mmol/L (136-145)
[2021-07-24 05:16] LABS: Magnesium 2.2 mg/dL (1.7-2.3)
--- NOTE | 2021-07-24 05:38 | PC.NURSE ---
Remdesivir Held Morning dose of Remdesivir held per Dr. Reich verbal order due to patient low heart rate.
[2021-07-24] MEDS: zinc gluconate 50 mg Tablet PO (08:27)
[2021-07-24] MEDS: cyanocobalamin 1,000 mcg Tablet 1000 MCG PO (08:27)
[2021-07-24] MEDS: cholecalciferol (vitamin D3) 1,000 unit Tablet 1000 UNIT PO (08:27)
[2021-07-24] MEDS: ascorbic acid 500 mg Tablet 1000 MG PO ×2 (08:27→17:20)
--- NOTE | 2021-07-24 09:45 | PC.CHAP ---
Pastoral Care Encounter/Spiritual Assessment Type of Contact [] Declined licensed mortgage loan officer visit [] Patient/Family/Request visit [] Outpatient visit [] Follow-up visit [] Physician referral [] Code/Alert [x] Routine visit [] Staff referral [] Actively dying [] Patient sleeping [] Family support [] [] Out of room [] Palliative care [] [] Receiving care in room [] Pre-surgical visit [] Trauma [] Long length of stay [x] ICU visit [x] Other: setting up in bed.. 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 Interventions [x] Prayer [] Active listening [] Non-anxious presence [] Spiritual/emotional support [] Crisis/trauma care [] Spiritual counseling [] Bereavement support [] Provided bereavement packet [] Provided Bible/devotional materials [] Provided toy/stuffed animal, coloring book to patient or family member [] Provided Communion [] Anointing/[place] [] Salvation [x] Completed spiritual assessment [] Other: Impact on Illness or Injury [] Angry [] Fearful [] Anxious [] Often cries [] Exhaustion [] Unable to work [] Unable to attend religion [] Unable to walk/stand [] Unable to read [] Unable to drive [] Unable to eat/drink [] Unable to sleep [] Unable to be with family [] Patient intubated [] Other: Summary Time spent with patient
--- NOTE | 2021-07-24 11:15 | PM.PN ---
Subjective Subjective: Interval history: Overall doing okay. Denies any active complaints. No significant events or changes. Shortness of breath is well controlled. No pain. No nausea or vomiting. No fever or chills. Medications: Reviewed: Yes Medication Review Details: Generic Name Dose Route Start Last Admin Trade Name Ana Maria PRN Reason Stop Dose Admin Ascorbic Acid 1,000 mg 07/22/21 18:00 07/24/21 08:27 Ascorbic Acid 50 0 Mg Tablet PO 1,000 mg BID ARIE Administration Cyanocobalamin 1,000 mcg 07/23/21 09:00 07/24/21 08:27 Cyanocobalamin 1 ,000 Mcg Tablet PO 1,000 mcg DAILY ARIE Administration Enoxaparin Sodium 90 mg 07/22/21 13:00 07/24/21 01:57 Enoxaparin 100 M g/Ml Syringe 1 mg/kg (90 mg) 90 mg SUBCUT Administration Q12H [facility] Famotidine 20 mg 07/22/21 13:00 07/24/21 01:57 Famotidine 20 Mg /2 Ml Inj IVP 20 mg Q12H [facility] Administration Remdesivir 100 mg/ Sodium 100 mls @ 100 mls /hr 07/23/21 06:00 07/24/21 05:16 Chloride IV 07/26/21 06:59 Not Given Q24H [facility] Methylprednisolone Sodium Succinate 60 mg 07/22/21 13:00 07/24/21 05:16 Methylprednisolo ne Sod Succ 125 Mg /2 Ml Inj IVP 60 mg Q8H ARIE Administration Fluticasone/Salmet lukasz 1 puff 07/22/21 20:00 07/24/21 07:41 Fluticasone-Salm eterol 250-50 Disk us INHALATION 1 puff BID.RESPIRATORY S CH Administration Vitamin D 1,000 unit 07/23/21 09:00 07/24/21 08:27 Cholecalciferol (Vitamin D3) 1,000 Unit Tablet PO 1,000 unit DAILY ARIE Administration Zinc Gluconate 50 mg 07/23/21 09:00 07/24/21 08:27 Zinc Gluconate 5 0 Mg Tablet PO 50 mg DAILY ARIE Administration Vitals/I&O/Wt Last Vital Signs Temp 96.6 F L 07/24/21 04:00 Pulse 71 07/24/21 11:12 Resp 16 07/24/21 11:12 BP 124/62 07/24/21 06:00 Pulse Ox 92 07/24/21 11:12 07/23/21 07/24/21 07/24/21 22:59 06:59 14:59 Intake Total 500 / 1500 100 / 1600 Output Total 250 / 550 Balance 250 / 950 100 / 1050 Weight last 48 hrs Weight 91.852 kg Weight 92.221 kg Physical Exam Narrative: EXAM NARRATIVE: The patient is awake, alert and oriented. Responses are adequate. Mood and affect are appropriate. No acute distress. Skin is warm and dry. Moist mucous membranes. Eyes PERRL, extraocular muscles are intact. Sclera normal. Neck is supple. No JVD. Lungs minimal bilateral crackles. Off BiPAP. No tachypnea. On high flow oxygen. FiO2 60% Heart S1, S2, regular Abdomen soft, nontender, bowel sounds are present Extremities no edema, cyanosis, calf tenderness bilaterally. Normal speech. Neuro. No focal deficits. Data : 07/24/21 03:42 07/24/21 03:42 Micro: Microbiology 07/22/21 09:01 Sputum Culture - Preliminary Sputum - Expectorated Sputum 07/22/21 10:45 Blood Culture - Preliminary Blood NEGATIVE TO DATE 07/22/21 10:40 Blood Culture - Preliminary Blood NEGATIVE TO DATE A&P Assessment and plan (1) Acute respiratory failure: Status: Acute (2) Hypoxia: Status: Acute (3) Pneumonia due to COVID-19 virus: Status: Acute (4) Acute metabolic encephalopathy: Status: Acute Additional A&P Information 70-year-old female with past medical history of hypertension, obesity presenting with shortness of breath, confusion, upper respiratory symptoms. The patient is found to have acute hypoxic respiratory failure secondary to bilateral COVID-19 pneumonia with associated acute metabolic encephalopathy. Acute hypoxic respiratory failure secondary to COVID-19 pneumonia. Stabilized. Off BiPAP. Continue high flow oxygen. Continue steroids. Remdesivir was held due to bradycardia. We will try to give it today. Continue monitoring in ICU continue vitamins. Acute metabolic encephalopathy. Probably due to the above. Currently resolved. Continue close monitoring DVT prophylaxis. full dose of Lovenox. The plan of care was discussed with the patient. She verbalized understanding and agreement with the current plan of care. Discussed with multidisciplinary team. Attestations Medical Necessity Statement*: Continuing aggressive management for acute respiratory failure. Requires inpatient hospitalization. 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
[2021-07-24] MEDS: remdesivir 100 MG in sodium chloride 0.9% (100 ml) 80 ML IV (17:26)
[2021-07-25] VITALS (29 sets, daily range): BP systolic 133–184; BP diastolic 67–90; PULSE 21–93; RESP 13–93; TEMP 36.6–37.1; O2SAT 48–96
[2021-07-25 01:23] LABS: ABG PCO2 42.7 mmHg (35-45); ABG PH Result 7.43 (7.35-7.45); Arterial Blood Gas Hematocrit 41.2 % (37-47); Base Excess ABG 3.4 mmol/L (-2.0-2.0); Blood Gas Allen Test Pos; Blood Gas Sample Site Radial, left; Blood Gas Sample Type Arterial; HCO3 ABG 28.2 mmol/L (22-26); PO2 ABG 68.8 mmHg (80.0-100.0)
[2021-07-25] MEDS: enoxaparin 100 mg/mL Syringe 90 MG SUBCUT ×2 (01:58→13:25)
[2021-07-25] MEDS: famotidine 20 mg/2 mL INJ IVP ×2 (01:59→13:25)
[2021-07-25] MEDS: ipratropium-albuterol 3 mL Neb INHALATION ×2 (08:19→14:26)
--- NOTE | 2021-07-25 08:20 | XR_ITS ---
WS: [id number] Portable AP upright chest, 07/25/2021 Clinical Data: dyspnea/cough Comparison: Portable chest, 07/23/2021. Findings: There are bilateral pulmonary opacities unchanged. The heart is enlarged. No nodules or mas ses are seen. There is a small left pleural effusion. Monitor leads are on the chest wall. XR/XR chest 1V portable [id number] Impression: No change in bilateral pulmonary opacities consistent with pneumonia.
--- NOTE | 2021-07-25 08:26 | PC.NURSE ---
[address] Reich to report patient's c/o of increased shortness of breath and feeling that she is unable to move any air on the right side of her lungs. Orders for stat chest x ray.
[2021-07-25] MEDS: cyanocobalamin 1,000 mcg Tablet 1000 MCG PO (09:09)
[2021-07-25] MEDS: cholecalciferol (vitamin D3) 1,000 unit Tablet 1000 UNIT PO (09:09)
[2021-07-25] MEDS: zinc gluconate 50 mg Tablet PO (09:09)
[2021-07-25] MEDS: ascorbic acid 500 mg Tablet 1000 MG PO ×2 (09:09→18:21)
--- NOTE | 2021-07-25 09:26 | PC.SOCIAL ---
IMM UPDATED IMM dated and initialed and copy given to patient
--- NOTE | 2021-07-25 13:12 | PM.PN ---
Subjective Subjective: Interval history: The patient earlier this morning reported little bit of worsening breathing. Then she had a coughing spell and expelled large amount of mucus after which she noticed significant improvement of her breathing. I suspect it was mucous plug which successfully came out. Now she is doing better. FiO2 has improved slightly. No chest pain, fever or chills, nausea vomiting, diarrhea. Medications: Reviewed: Yes Medication Review Details: Generic Name Dose Route Start Last Admin Trade Name Anthonyq PRN Reason Stop Dose Admin Albuterol/Ipratrop ium 3 ml 07/22/21 11:50 07/25/21 08:19 Ipratropium-Albu terol 3 Ml Neb INHALATION 3 ml Q4H.RESPIRATORY P RN Administration SHORTNESS OF JOSE TH Ascorbic Acid 1,000 mg 07/22/21 18:00 07/25/21 09:09 Ascorbic Acid 50 0 Mg Tablet PO 1,000 mg BID ARIE Administration Cyanocobalamin 1,000 mcg 07/23/21 09:00 07/25/21 09:09 Cyanocobalamin 1 ,000 Mcg Tablet PO 1,000 mcg DAILY ARIE Administration Enoxaparin Sodium 90 mg 07/22/21 13:00 07/25/21 01:58 Enoxaparin 100 M g/Ml Syringe 1 mg/kg (90 mg) 90 mg SUBCUT Administration Q12H ARIE Famotidine 20 mg 07/22/21 13:00 07/25/21 01:59 Famotidine 20 Mg /2 Ml Inj IVP 20 mg Q12H ARIE Administration Remdesivir 100 mg/ Sodium 100 mls @ 100 mls /hr 07/24/21 18:00 07/25/21 01:01 Chloride IV 07/28/21 18:59 Infused Q24H ARIE Infusion Methylprednisolone Sodium Succinate 60 mg 07/22/21 13:00 07/25/21 05:24 Methylprednisolo ne Sod Succ 125 Mg /2 Ml Inj IVP 60 mg Q8H ARIE Administration Fluticasone/Salmet lukasz 1 puff 07/22/21 20:00 07/25/21 08:19 Fluticasone-Salm eterol 250-50 Disk us INHALATION 1 puff BID.RESPIRATORY S CH Administration Vitamin D 1,000 unit 07/23/21 09:00 07/25/21 09:09 Cholecalciferol (Vitamin D3) 1,000 Unit Tablet PO 1,000 unit DAILY ARIE Administration Zinc Gluconate 50 mg 07/23/21 09:00 07/25/21 09:09 Zinc Gluconate 5 0 Mg Tablet PO 50 mg DAILY ARIE Administration Vitals/I&O/Wt Last Vital Signs Temp 97.5 F L 07/24/21 20:00 Pulse 21 L 07/25/21 11:27 Resp 56 H 07/25/21 11:27 BP 138/73 07/25/21 11:00 Pulse Ox 92 07/25/21 11:27 07/24/21 07/25/21 07/25/21 22:59 06:59 14:59 Intake Total 780 / 1680 580 / 2260 400 / 400 Output Total 350 / 650 300 / 300 Balance 430 / 1030 580 / 1610 100 / 100 Weight last 48 hrs Weight 91.762 kg Weight 91.852 kg Physical Exam Narrative: EXAM NARRATIVE: The patient is awake, alert and oriented. Responses are adequate. Mood and affect are appropriate. No acute distress. Skin is warm and dry. Moist mucous membranes. Eyes PERRL, extraocular muscles are intact. Sclera normal. Neck is supple. No JVD. Lungs minimal bilateral crackles. Off BiPAP. No tachypnea. On high flow oxygen. FiO2 60% Heart S1, S2, regular Abdomen soft, nontender, bowel sounds are present Extremities no edema, cyanosis, calf tenderness bilaterally. Normal speech. Neuro. No focal deficits. Data : 07/24/21 03:42 07/24/21 03:42 Micro: Microbiology 07/22/21 09:01 Sputum Culture - Final Sputum - Expectorated Sputum A&P Assessment and plan (1) Acute respiratory failure: Status: Acute (2) Hypoxia: Status: Acute (3) Pneumonia due to COVID-19 virus: Status: Acute (4) Acute metabolic encephalopathy: Status: Acute Additional A&P Information 70-year-old female with past medical history of hypertension, obesity presenting with shortness of breath, confusion, upper respiratory symptoms. The patient is found to have acute hypoxic respiratory failure secondary to bilateral COVID-19 pneumonia with associated acute metabolic encephalopathy. Acute hypoxic respiratory failure secondary to COVID-19 pneumonia. Stabilized. Off BiPAP. Continue high flow oxygen. Continue steroids. Remdesivir was held due to bradycardia. Continue monitoring chest x-ray and inflammatory markers. Acute metabolic encephalopathy. Probably due to the above. Currently resolved. Continue close monitoring DVT prophylaxis. full dose of Lovenox. The plan of care was discussed with the patient. She verbalized understanding and agreement with the current plan of care. Discussed with multidisciplinary team. Attestations Medical Necessity Statement*: Continue current management plan Coding Level of Care Code Acute Therapeutic Recreation Specialist for [facility] Fwd Diagnoses Acute respiratory failure J96.00 Hypoxia R09.02 Pneumonia due to COVID-19 virus U07.1; J12.82 Acute metabolic encephalopathy G93.41
[2021-07-25] MEDS: remdesivir 100 MG in sodium chloride 0.9% (100 ml) 80 ML IV (18:21)
[2021-07-26] VITALS (47 sets, daily range): BP systolic 145–185; BP diastolic 67–102; PULSE 51–109; RESP 15–35; TEMP 36.4–37.5; O2SAT 87–94
--- NOTE | 2021-07-26 00:39 | NUR.SHIFT ---
Received report from erick RN. Patient is sitting up in the chair watching tv. Patient has heated high flow nasal cannula at 45L and 65%. Patient is tolerating well and all vital signs are stable. Fresh ice water provided for the patient. Patient denies any pain, needs, or requests at this time.
[2021-07-26] MEDS: famotidine 20 mg/2 mL INJ IVP ×2 (01:06→12:08)
[2021-07-26] MEDS: enoxaparin 100 mg/mL Syringe 90 MG SUBCUT ×2 (01:06→12:09)
[2021-07-26 04:17] LABS: Basophils % 0.1 %; Hematocrit 40.4 % (37.0-47.0); Lymphocytes # 0.7 10^3/uL (0.8-4.8); Lymphocytes % 9.8 %; Mean Corpuscular HGB Conc 32.2 g/dL (30.0-36.0); Mean Corpuscular Hemoglobin 27.9 pg (28.0-34.0); Mean Corpuscular Volume 86.7 fl (81-99); Mean Platelet Volume 9.4 fL (7.4-10.4); Monocytes # 0.4 10^3/uL (0.2-0.9); Neutrophils # 5.79 10^3/uL (1.8-7.7); Neutrophils % 79.6 %; Nucleated Red Blood Cells % 0 %; Platelet Count 253 10^3/cmm (130-400); Red Blood Count 4.66 10^6/uL (4.1-5.3); Red Cell Distribution Width 13.7 % (12.1-15.1); White Blood Count 7.3 10^3/uL (4.0-10.0)
[2021-07-26 04:36] LABS: Alanine Aminotransferase 22 U/L (0-33); Albumin Level 2.8 g/dL (3.5-5.2); Alkaline Phosphatase 37 IU/L (35-105); Anion Gap 15.2 (5-19); Aspartate Amino Transferase 24 U/L (0-32); Blood Urea Nitrogen 27 mg/dL (8-23); C Reactive Protein 15.6 mg/L (0.0-4.9); Calcium 8.3 mg/dL (8.5-10.5); Carbon Dioxide 25 mmol/L (22-29); Chloride 108 mmol/L (98-107); Globulin 3.2 g/dL (1.3-4.6); Glucose 142 mg/dL (65-115); Magnesium 2.1 mg/dL (1.7-2.3); Osmolality Calculated 306 mOsm/kg (285-295); Potassium 4.2 mmol/L (3.5-5.1); Sodium 144 mmol/L (136-145); Total Bilirubin 0.5 mg/dL (0.15-1.2)
[2021-07-26 05:03] LABS: Procalcitonin 0.12 ng/mL (0-0.5)
--- NOTE | 2021-07-26 05:14 | PC.NURSE ---
SHIFT NOTE Assisted the patient back to bed at 2100 and patient rested in bed the rest of the night. Patient's systolic blood pressure remained elevated 160's-180's throughout the night. Dr. Holder notified at 2251 of the patient's hypertension. No new orders received. All other vital signs have remained stable. Patient's heated high flow remains at 65% and 45L. Patient's SpO2 stayed >90% when the patient was resting in bed. Overall, the patient had an uneventful night.
[2021-07-26 06:14] LABS: Slide Review Slide Review Perform
--- NOTE | 2021-07-26 07:00 | XRR_ITS ---
PROCEDURE INFORMATION: Exam: XR Chest Exam date and time: 07/26/2021 7:00 AM Age: 70 years old Clinical indication: Other: Follow up covid TECHNIQUE: Imaging protocol: XR of the chest. Views: 1 view. COMPARISON: CR XR chest 1V portable [id number] 07/25/2021 8:26 AM FINDINGS: Lungs: Persistent bilateral airspace opacities. No large pleural effusion or pneumothorax. Pleural spaces: See Lungs finding. Heart/Mediastinum: Stable cardiomediastinal silhouette. Bones/joints: No acute osseous injury identified. Degenerative changes of the spine seen. XR/XR chest 1V portable [id number] IMPRESSION: Persistent bilateral airspace opacities.
[2021-07-26] MEDS: ipratropium-albuterol 3 mL Neb INHALATION ×4 (07:48→20:09)
[2021-07-26] MEDS: cholecalciferol (vitamin D3) 1,000 unit Tablet 1000 UNIT PO (08:37)
[2021-07-26] MEDS: ascorbic acid 500 mg Tablet 1000 MG PO ×2 (08:37→17:42)
[2021-07-26] MEDS: zinc gluconate 50 mg Tablet PO (08:37)
[2021-07-26] MEDS: cyanocobalamin 1,000 mcg Tablet 1000 MCG PO (08:37)
--- NOTE | 2021-07-26 12:37 | PM.PN ---
Subjective Subjective: Interval history: Seen this morning. Patient states she has been coughing up a lot of sputum and after coughing she feels better. She also reports slight improvement compared to prior days. She is currently still on heated high flow. 65% FiO2 45 L. Denies any other symptoms at this time. She is not vaccinated for COVID-19. Vitals/I&O/Wt Last Vital Signs Temp 97.6 F 07/26/21 07:00 Pulse 82 07/26/21 11:54 Resp 21 H 07/26/21 11:54 BP 147/67 07/26/21 09:00 Pulse Ox 92 07/26/21 11:54 07/25/21 07/26/21 07/26/21 22:59 06:59 14:59 Intake Total 880 / 1580 120 / 1700 400 / 400 Output Total 500 / 1150 Balance 380 / 430 120 / 550 400 / 400 Weight last 48 hrs Weight 91.943 kg Weight 91.762 kg Physical Exam Narrative: EXAM NARRATIVE: General: Alert oriented x3, patient seen sitting up in bed on heated high flow, no acute respiratory distress, appears comfortable. Does cough when she talks to. HEENT: Normocephalic, atraumatic, EOMI, Cardio: Regular rate rhythm, normal S1-S2, no murmurs rubs gallops, Respiratory: Diminished bilateral air entry, minimal rhonchi present throughout lung montanez. Coarse breath sounds. GI: Abdomen soft, nontender, nondistended, bowel sounds + Behavior: Appropriate and cooperative Extremities:no edema, no cyanosis Data : 07/26/21 04:00 07/26/21 04:00 A&P Assessment and plan (1) Acute metabolic encephalopathy: Status: Acute (2) Pneumonia due to COVID-19 virus: Status: Acute (3) Cough: Status: Acute (4) Hypoxia: Status: Acute Additional A&P Information #COVID-19 pneumonia #Acute respiratory failure with hypoxia ?Patient did require BiPAP initially and she is off that now. She is on heated high flow. Remdesivir was initially given and due to patient's bradycardia it was discontinued. Later he was recontinued and heart rate was fine. She is currently on steroids we'll continue. Telemetry was reviewed and she does have bouts of bradycardia overnight. I have asked the nurse to obtain an EKG when she gets bradycardic again to rule out any heart block. Lowest heart rate seen 36. Unsure if there is a component of obstructive sleep apnea. Will monitor overnight pulse ox. Patient may benefit from a sleep study outpatient. She does not seem to be in any medications which could contribute to this. Daytime bradycardia is not present. I will check D-dimer today just to rule out PE. -Continue patient on heated high flow and escalate versus de-escalate oxygen therapy as required. Continue Solu-medrol 60 q8 hours. DVT prophylaxis: Full dose Lovenox. Creatinine is normal. Attestations Medical Necessity Statement*: > 48 hour stay Coding Level of Care Code Acute Network Systems Integrator for [facility] Fwd Diagnoses Acute metabolic encephalopathy G93.41 Pneumonia due to COVID-19 virus U07.1; J12.82 Cough R05.9 Hypoxia R09.02
[2021-07-26 13:21] LABS: D Dimer 0.42 ug/mIFEU (0-0.59)
[2021-07-26] MEDS: remdesivir 100 MG in sodium chloride 0.9% (100 ml) 80 ML IV (17:42)
[2021-07-27] VITALS (30 sets, daily range): BP systolic 142–180; BP diastolic 63–92; PULSE 54–92; RESP 13–32; TEMP 36.6–37.1; O2SAT 88–94
[2021-07-27] MEDS: famotidine 20 mg/2 mL INJ IVP ×2 (00:58→12:05)
[2021-07-27] MEDS: enoxaparin 100 mg/mL Syringe 90 MG SUBCUT ×2 (00:58→12:05)
[2021-07-27 04:01] LABS: Basophils % 0.2 %; Hematocrit 39.9 % (37.0-47.0); Hemoglobin 12.9 g/dL (11.5-15.3); Lymphocytes # 0.6 10^3/uL (0.8-4.8); Lymphocytes % 6.8 %; Mean Corpuscular HGB Conc 32.3 g/dL (30.0-36.0); Mean Corpuscular Hemoglobin 27.7 pg (28.0-34.0); Mean Corpuscular Volume 85.8 fl (81-99); Mean Platelet Volume 9.7 fL (7.4-10.4); Monocytes # 0.5 10^3/uL (0.2-0.9); Neutrophils # 7.29 10^3/uL (1.8-7.7); Neutrophils % 81.4 %; Nucleated Red Blood Cells % 0 %; Platelet Count 302 10^3/cmm (130-400); Red Blood Count 4.65 10^6/uL (4.1-5.3); Red Cell Distribution Width 13.5 % (12.1-15.1)
[2021-07-27 04:29] LABS: Anion Gap 18.7 (5-19); Blood Urea Nitrogen 28 mg/dL (8-23); Calcium 8.5 mg/dL (8.5-10.5); Carbon Dioxide 22 mmol/L (22-29); Chloride 106 mmol/L (98-107); Glucose 150 mg/dL (65-115); Osmolality Calculated 304 mOsm/kg (285-295); Potassium 3.7 mmol/L (3.5-5.1); Sodium 143 mmol/L (136-145)
[2021-07-27 05:42] LABS: Slide Review Slide Review Perform
[2021-07-27] MEDS: ascorbic acid 500 mg Tablet 1000 MG PO ×2 (08:58→17:07)
[2021-07-27] MEDS: cholecalciferol (vitamin D3) 1,000 unit Tablet 1000 UNIT PO (08:58)
[2021-07-27] MEDS: zinc gluconate 50 mg Tablet PO (08:58)
[2021-07-27] MEDS: cyanocobalamin 1,000 mcg Tablet 1000 MCG PO (08:58)
--- NOTE | 2021-07-27 11:00 | P.PN_ITS ---
Subjective Subjective: Interval history: Seen this AM. She is resting comfortably in bed. On 70% FIo2 seen at bedside. Yesterday patient was on 65% and 45L flow. She offers no complaints. She says she is no longer having to cough and feels a little better. Vitals/I&O/Wt Last Vital Signs Temp 97.8 F 07/27/21 04:00 Pulse 92 07/27/21 10:00 Resp 22 H 07/27/21 10:00 BP 169/92 07/27/21 10:00 Pulse Ox 89 L 07/27/21 10:00 07/26/21 07/27/21 07/27/21 22:59 06:59 14:59 Intake Total 400 / 1200 150 / 1350 Output Total 350 / 750 Balance 50 / 450 150 / 600 Weight last 48 hrs Weight 92.986 kg Weight 91.943 kg Physical Exam Narrative: EXAM NARRATIVE: General: Alert oriented x3, patient seen sitting up in bed on heated high flow, no acute respiratory distress, appears comfortable on 70% FiO2. HEENT: Normocephalic, atraumatic, EOMI, Cardio: Regular rate rhythm, normal S1-S2, no murmurs rubs gallops, Respiratory: Diminished bilateral air entry, minimal rhonchi present throughout lung montanez. Coarse breath sounds. GI: Abdomen soft, nontender, nondistended, bowel sounds + Behavior: Appropriate and cooperative Extremities:no edema, no cyanosis Physical exam unchanged compared to yesterday. Data : 07/27/21 03:20 07/27/21 03:20 Micro: Microbiology 07/22/21 10:45 Blood Culture - Final Blood NO GROWTH AFTER 5 DAYS 07/22/21 10:40 Blood Culture - Final Blood NO GROWTH AFTER 5 DAYS A&P Assessment and plan (1) Acute metabolic encephalopathy: Status: Acute (2) Pneumonia due to COVID-19 virus: Status: Acute (3) Cough: Status: Acute (4) Hypoxia: Status: Acute Additional A&P Information #COVID-19 pneumonia #Acute respiratory failure with hypoxia ?Patient did require BiPAP initially and she is off that now. She is on heated high flow. Remdesivir was initially given and due to patient's bradycardia it was discontinued. Later he was recontinued and heart rate was fine. She is currently on steroids we'll continue. Telemetry was reviewed and she does have bouts of bradycardia overnight. I have asked the nurse to obtain an EKG when she gets bradycardic again to rule out any heart block. This has not been done yet (07/26/2021). Lowest heart rate seen 36. Unsure if there is a component of obstructive sleep apnea. Will monitor overnight pulse ox. Patient may benefit from a sleep study outpatient. She does not seem to be in any medications which could contribute to this. Daytime bradycardia is not present. D-Dimer is negative. -Continue patient on heated high flow and escalate versus de-escalate oxygen therapy as required. Continue Solu-medrol 60 q8 hours. DVT prophylaxis: Full dose Lovenox. Creatinine is normal. Attestations Medical Necessity Statement*: >48 hour stay Coding Level of Care Code Acute Cargo Services Coordinator for [facility] Diagnoses Acute metabolic encephalopathy G93.41 Pneumonia due to COVID-19 virus U07.1; J12.82 Cough R05.9 Hypoxia R09.02
--- NOTE | 2021-07-27 13:26 | PC.SOCIAL ---
IMM Update pg 2 of IMM updated and reviewed w/ patient. Copy provided.
[2021-07-27] MEDS: remdesivir 100 MG in sodium chloride 0.9% (100 ml) 80 ML IV (17:07)
--- NOTE | 2021-07-27 18:11 | PC.NURSE ---
Shift note: Patient has been sitting up in the chair since lunch and has been tolerating it well. Patient oxygen saturation did drop to 85% while getting up and transferring, but recovered without difficulty. Patient got teary eyed this evening after talking with family. Patient reports utilizing the flutter valve and IS independently without difficulty. Patient was assisted to the BSC x1, voided and had a BM while up. Patient is currently on 45L at 70% which has not been changed since it was increased this morning. Patient's physical assessment has remained unchanged and lungs remain clear, diminished. Patient denies any other needs or requests at this time.
[2021-07-28] VITALS (28 sets, daily range): BP systolic 135–188; BP diastolic 63–100; PULSE 53–110; RESP 15–30; TEMP 36.7–36.8; O2SAT 80–99
[2021-07-28] MEDS: enoxaparin 100 mg/mL Syringe 90 MG SUBCUT ×2 (00:39→14:13)
[2021-07-28] MEDS: famotidine 20 mg/2 mL INJ IVP ×2 (00:39→14:14)
[2021-07-28 03:35] LABS: ABG PCO2 42.4 mmHg (35-45); ABG PH Result 7.45 (7.35-7.45); Alveolar-Arterial Oxygen Gradi 64.7 mmHg (5-10); Arterial Blood Gas Hematocrit 41.6 % (37-47); Base Excess ABG 4.8 mmol/L (-2.0-2.0); Blood Gas Allen Test Pos; Blood Gas Sample Site Radial, left; Blood Gas Sample Type Arterial; Carboxyhemoglobin 0.4 %THgb (0.4-20.1); HCO3 ABG 29.4 mmol/L (22-26); HGB O2 Sat 90.3 % (95-100); Ionized Calcium Level - ABG 1.2 mmol/L (1.1-1.4); Oxygen Device NC; Oxygen Saturation ABG 91.6; PO2 ABG 55.6 mmHg (80.0-100.0); Potassium Level - ABG 3.9 mmol/L (3.5-5.0); Total Hemoglobin 13.6 g/dL (12-16)
[2021-07-28 03:49] LABS: Basophils % 0.2 %; Hematocrit 39.9 % (37.0-47.0); Hemoglobin 12.9 g/dL (11.5-15.3); Lymphocytes # 0.7 10^3/uL (0.8-4.8); Mean Corpuscular HGB Conc 32.3 g/dL (30.0-36.0); Mean Corpuscular Hemoglobin 27.4 pg (28.0-34.0); Mean Corpuscular Volume 84.7 fl (81-99); Mean Platelet Volume 9.6 fL (7.4-10.4); Monocytes # 0.5 10^3/uL (0.2-0.9); Neutrophils # 8.37 10^3/uL (1.8-7.7); Neutrophils % 82.8 %; Nucleated Red Blood Cells % 0 %; Platelet Count 293 10^3/cmm (130-400); Red Blood Count 4.71 10^6/uL (4.1-5.3); Red Cell Distribution Width 13.4 % (12.1-15.1); White Blood Count 10.1 10^3/uL (4.0-10.0)
[2021-07-28 04:07] LABS: Anion Gap 15.1 (5-19); Blood Urea Nitrogen 26 mg/dL (8-23); Carbon Dioxide 25 mmol/L (22-29); Chloride 109 mmol/L (98-107); Glucose 144 mg/dL (65-115); Osmolality Calculated 307 mOsm/kg (285-295); Potassium 4.1 mmol/L (3.5-5.1); Sodium 145 mmol/L (136-145)
--- NOTE | 2021-07-28 06:15 | PC.NURSE ---
No changes overnight.
[2021-07-28] MEDS: cyanocobalamin 1,000 mcg Tablet 1000 MCG PO (08:14)
[2021-07-28] MEDS: zinc gluconate 50 mg Tablet PO (08:14)
[2021-07-28] MEDS: cholecalciferol (vitamin D3) 1,000 unit Tablet 1000 UNIT PO (08:14)
[2021-07-28] MEDS: ascorbic acid 500 mg Tablet 1000 MG PO ×2 (08:14→17:45)
[2021-07-28] MEDS: ipratropium-albuterol 3 mL Neb INHALATION ×4 (09:01→23:04)
[2021-07-28] MEDS: vancomycin 1,500 MG/300 ML PIGGYBACK 200 MG IV (09:53)
[2021-07-28] MEDS: piperacillin-tazobactam 3.375 GM in sodium chloride 0.9% (plus) 50 ML IV ×2 (11:49→19:30)
--- NOTE | 2021-07-28 15:53 | PM.PN ---
Subjective Subjective: Interval history: Pt seen this AM. She is on 85% FiO2. She appears a bit anxious. After I spoke to her in detail, she seems to feel better. She says her bed is very uncomfortable and its hard for her to self prone. Nursing staff reported that this is the second hospital bed they have gotten for her. We will try a little bit of xanax and pt can attempt self prone today. SHe is continuing to her the acapella and incentive spirometer. Vitals/I&O/Wt Last Vital Signs Temp 98.1 F 07/28/21 14:00 Pulse 83 07/28/21 15:00 Resp 23 H 07/28/21 15:00 BP 143/74 07/28/21 15:00 Pulse Ox 92 07/28/21 15:00 07/28/21 07/28/21 07/28/21 06:59 14:59 22:59 Intake Total 100 / 230 1600 / 1600 Balance 100 / 230 1600 / 1600 Weight last 48 hrs Weight 92.986 kg Physical Exam Narrative: EXAM NARRATIVE: General: Alert oriented x3, patient seen sitting up in bed on heated high flow, no acute respiratory distress, appears comfortable on 85% FiO2. HEENT: Normocephalic, atraumatic, EOMI, Cardio: Regular rate rhythm, normal S1-S2, no murmurs rubs gallops, Respiratory: Diminished bilateral air entry, minimal rhonchi present throughout lung montanez. Coarse breath sounds. GI: Abdomen soft, nontender, nondistended, bowel sounds + Behavior: Appropriate and cooperative Extremities:no edema, no cyanosis Physical exam unchanged compared to yesterday but FiO2 requirement has increased. Data : 07/28/21 03:08 07/28/21 03:08 Micro: Microbiology 07/22/21 10:45 Blood Culture - Final Blood NO GROWTH AFTER 5 DAYS 07/22/21 10:40 Blood Culture - Final Blood NO GROWTH AFTER 5 DAYS A&P Assessment and plan (1) Acute metabolic encephalopathy: Status: Acute (2) Pneumonia due to COVID-19 virus: Status: Acute (3) Cough: Status: Acute (4) Hypoxia: Status: Acute Additional A&P Information #COVID-19 pneumonia #Acute respiratory failure with hypoxia ?Patient did require BiPAP initially and she is off that now. She is on heated high flow. Remdesivir was initially given and due to patient's bradycardia it was discontinued. Later he was recontinued and heart rate was fine. She is currently on steroids we'll continue. Telemetry was reviewed and she does have bouts of bradycardia overnight. I have asked the nurse to obtain an EKG when she gets bradycardic again to rule out any heart block. This has not been done yet (07/26/2021). Lowest heart rate seen 36 few days ago. Unsure if there is a component of obstructive sleep apnea. Patient may benefit from a sleep study outpatient. She does not seem to be in any medications which could contribute to this. Daytime bradycardia is not present. D-Dimer is negative. Reviewed telemetry again today. Overnight she did get bradycardic down to high 40's and early 50's. During day, no bradycardia experienced. Has not had any heart blocks on telemetry that I could see. -Continue patient on heated high flow and escalate versus de-escalate oxygen therapy as required. Continue Solu-medrol 60 q8 hours. She is s/p actemra 07/22. Also getting remdesivir (today is last dose). Being covered with vanc and zosyn empirically as well. COntinue vitamins. DVT prophylaxis: Full dose Lovenox. Creatinine is normal. Daughter updated in detail over the phone. I will also call pts son to update him. Prognosis guarded. Pt's code status remains DNI. Ok to do CPR if needed. Daughter aware. Attestations Medical Necessity Statement*: > 48 hour stay Coding Level of Care Code Acute Sales Performance Manager for g Fwd Diagnoses Acute metabolic encephalopathy G93.41 Pneumonia due to COVID-19 virus U07.1; J12.82 Cough R05.9 Hypoxia R09.02
--- NOTE | 2021-07-28 15:55 | PC.NURSE ---
Pt's daughter , Christy Lang, in to visit at bedside as permitted by Dr Bhatt. Pt smiling and very happy.
[2021-07-28] MEDS: remdesivir 100 MG in sodium chloride 0.9% (100 ml) 80 ML IV (17:45)
--- NOTE | 2021-07-28 19:28 | PC.NURSE ---
Shift Note: Pt remains on Heated high flow at 55 liters and 85%. She seemed depressed this am. We have provided alot of encouragement, she responded well to it. She agreed to try proning, we started at 1850. She has had a sponge bath, her hair combed and braided today. Her daughter came to visit brought her a bag full of berries, which are at bedside. She has been up to BS to urinate twice, 600ml. Frequent safety and comfort rounds continue. Orders and/or nursing care completed as indicated. Patient monitored for response to intervention and treatment(s). Education provided includes positive thinking, flutter valve and IS use. Patient and/or floor representative verbalized and demonstrated understanding of plan of care and medications.. Will continue to monitor.
[2021-07-28] MEDS: ALPRAZolam 0.5 mg Tablet PO (20:24)
[2021-07-29] VITALS (31 sets, daily range): BP systolic 124–183; BP diastolic 54–102; PULSE 45–98; RESP 2–30; TEMP 36.5–37.1; O2SAT 88–94
[2021-07-29] MEDS: famotidine 20 mg/2 mL INJ IVP ×2 (02:10→13:27)
[2021-07-29] MEDS: piperacillin-tazobactam 3.375 GM in sodium chloride 0.9% (plus) 50 ML IV ×3 (02:10→18:07)
[2021-07-29] MEDS: enoxaparin 100 mg/mL Syringe 90 MG SUBCUT ×2 (02:10→13:27)
[2021-07-29] MEDS: vancomycin 1,500 MG/300 ML PIGGYBACK 200 MG IV ×2 (03:53→21:10)
[2021-07-29] MEDS: ipratropium-albuterol 3 mL Neb INHALATION ×3 (08:24→20:16)
[2021-07-29 08:41] LABS: Basophils % 0.2 %; Hematocrit 40.4 % (37.0-47.0); Lymphocytes # 0.5 10^3/uL (0.8-4.8); Lymphocytes % 5.3 %; Mean Corpuscular HGB Conc 32.2 g/dL (30.0-36.0); Mean Corpuscular Hemoglobin 27.5 pg (28.0-34.0); Mean Corpuscular Volume 85.6 fl (81-99); Mean Platelet Volume 9.8 fL (7.4-10.4); Monocytes # 0.6 10^3/uL (0.2-0.9); Monocytes % 5.4 %; Neutrophils # 8.89 10^3/uL (1.8-7.7); Neutrophils % 86.9 %; Nucleated Red Blood Cells % 0 %; Platelet Count 261 10^3/cmm (130-400); Red Blood Count 4.72 10^6/uL (4.1-5.3); Red Cell Distribution Width 13.5 % (12.1-15.1); White Blood Count 10.2 10^3/uL (4.0-10.0)
[2021-07-29] MEDS: ascorbic acid 500 mg Tablet 1000 MG PO ×2 (08:44→18:08)
[2021-07-29] MEDS: cholecalciferol (vitamin D3) 1,000 unit Tablet 1000 UNIT PO (08:44)
[2021-07-29] MEDS: zinc gluconate 50 mg Tablet PO (08:44)
[2021-07-29] MEDS: cyanocobalamin 1,000 mcg Tablet 1000 MCG PO (08:44)
--- NOTE | 2021-07-29 09:11 | PC.SOCIAL ---
IMM Not Update Pg. 2 of IMM not updated. Patient not anticipated to discharge within 48hours.
--- NOTE | 2021-07-29 10:05 | PC.CHAP ---
Pastoral Care Encounter/Spiritual Assessment Type of Contact [] Declined design draftsman visit [] Patient/Family/Request visit [] Outpatient visit [] Follow-up visit [] Physician referral [] Code/Alert [x] Routine visit [] Staff referral [] Actively dying [] Patient sleeping [] Family support [] [] Out of room [] Palliative care [] [x] Receiving care in room [] Pre-surgical visit [] Trauma [] Long length of stay [x] ICU visit [x] Other: isolated Relational/Emotional Strength [] Patient feels connected with others/family/visitors/staff [] Distress [] Loneliness/isolation [] Abandonment Spirituality of Patient [] Person of Sanam [] Attends Episcopalian of their Sanam [] Believes in Prayer [] Reads Bible or Worship materials [] There are Spiritual issues to be addressed [employer] Interventions [x] Prayer [] Active listening [] Non-anxious presence [] Spiritual/emotional support [] Crisis/trauma care [] Spiritual counseling [] Bereavement support [] Provided bereavement packet [] Provided Bible/devotional materials [] Provided toy/stuffed animal, coloring book to patient or family member [] Provided Communion [] Anointing/[place] [] Salvation [x] Completed spiritual assessment [] Other: Impact on Illness or Injury [] Angry [] Fearful [] Anxious [] Often cries [] Exhaustion [] Unable to work [] Unable to attend episcopalian [] Unable to walk/stand [] Unable to read [] Unable to drive [] Unable to eat/drink [] Unable to sleep [] Unable to be with family [] Patient intubated [] Other: Summary Time spent with patient
[2021-07-29] MEDS: lanolin oint 7 gm 1 APPLIC TOPICAL (11:07)
[2021-07-29 11:12] LABS: Blood Urea Nitrogen 30 mg/dL (8-23); Calcium 7.7 mg/dL (8.5-10.5); Carbon Dioxide 23 mmol/L (22-29); Chloride 110 mmol/L (98-107); Glucose 188 mg/dL (65-115); Osmolality Calculated 309 mOsm/kg (285-295); Sodium 144 mmol/L (136-145)
--- NOTE | 2021-07-29 17:21 | P.PN_ITS ---
Subjective Subjective: Interval history: Patient seen today. She subjectively reports feeling better. She is on 85% FiO2 and 50 L flow. She says she is bringing up a lot of sputum which is clear. Vitals/I&O/Wt Last Vital Signs Temp 98.8 F 07/29/21 13:00 Pulse 82 07/29/21 16:00 Resp 29 H 07/29/21 16:00 BP 158/76 07/29/21 16:00 Pulse Ox 92 07/29/21 16:00 07/29/21 07/29/21 07/29/21 06:59 14:59 22:59 Intake Total 350 / 2800 770 / 770 50 / 820 Output Total 0 / 600 325 / 325 1 / 326 Balance 350 / 2200 445 / 445 49 / 494 Physical Exam Narrative: EXAM NARRATIVE: General: Alert oriented x3, patient seen sitting up in bed on heated high flow, no acute respiratory distress, appears comfortable on 85% FiO2. HEENT: Normocephalic, atraumatic, EOMI, Cardio: Regular rate rhythm, normal S1-S2, no murmurs rubs gallops, Respiratory: Diminished bilateral air entry, minimal rhonchi present throughout lung montanez. Coarse breath sounds. GI: Abdomen soft, nontender, nondistended, bowel sounds + Behavior: Appropriate and cooperative Extremities:no edema, no cyanosis Physical exam unchanged compared to yesterday and FiO2 requirement has stayed the same.. Data : 07/29/21 07:57 07/29/21 10:49 A&P Assessment and plan (1) Acute metabolic encephalopathy: Status: Acute (2) Pneumonia due to COVID-19 virus: Status: Acute (3) Cough: Status: Acute (4) Hypoxia: Status: Acute Additional A&P Information #COVID-19 pneumonia #Acute respiratory failure with hypoxia ?Patient did require BiPAP initially and she is off that now. She is on heated high flow. Remdesivir was initially given and due to patient's bradycardia it was discontinued. Later he was recontinued and heart rate was fine. She is currently on steroids we'll continue. Telemetry was reviewed and she does have bouts of bradycardia overnight. I have asked the nurse to obtain an EKG when she gets bradycardic again to rule out any heart block. This has not been done yet (07/26/2021). Lowest heart rate seen 36 few days ago. Unsure if there is a component of obstructive sleep apnea. Patient may benefit from a sleep study outpatient. She does not seem to be in any medications which could contribute to this. Daytime bradycardia is not present. D-Dimer is negative. Reviewed telemetry again today. Overnight she did get bradycardic down to high 40's and early 50's. During day, no bradycardia experienced. Has not had any heart blocks on telemetry that I could see. -Continue patient on heated high flow and escalate versus de-escalate oxygen therapy as required. Continue Solu-medrol 60 q8 hours. She is s/p actemra 07/22. Remdesivir completed 07/28/2021.. Being covered with vanc and zosyn empirically as well. COntinue vitamins. DVT prophylaxis: Full dose Lovenox. Creatinine is normal. Son updated over the phone today. Prognosis guarded. Pt's code status remains DNI. Ok to do CPR if needed. Daughter aware. Attestations Medical Necessity Statement*: >48 hour stay Coding Level of Care Code Acute Inspector Balance Truing for [employer] Fwd Diagnoses Acute metabolic encephalopathy G93.41 Pneumonia due to COVID-19 virus U07.1; J12.82 Cough R05.9 Hypoxia R09.02
--- NOTE | 2021-07-29 18:35 | PC.NURSE ---
Shift Note: NO changes in O2 settings she remains at 85% and 50 liters on heated high flow. She has been coughing up blood tinged sputum. She has had nose bleed today, Lanolin applied into bilat nostrils, it helped. Pt agreed to try proning again on pm shift after received bedtime PRN Xanax. Spoke with her daughter this am, grand daughter mid afternoon and her son around 1600, all updated on pt's condition. Pt has ate most of her meals as well as the package of blueberries at bedside, improved appetite. She has been to BSC twice, BM this shift. Urine out put decreased today, 325ml. Frequent safety and comfort rounds continue. Orders and/or nursing care completed as indicated. Patient monitored for response to intervention and treatment(s). Education provided includes IS, flutter valve, proning, deep breathing, no changes to medications. Patient and/or corporate representative verbalized understanding of medications, progress, and plan of care. Will continue to monitor.
[2021-07-29] MEDS: ALPRAZolam 0.5 mg Tablet PO (21:10)
[2021-07-30] VITALS (35 sets, daily range): BP systolic 123–168; BP diastolic 60–84; PULSE 53–111; RESP 17–30; TEMP 36.4–36.7; O2SAT 87–100; BMI 31.1
[2021-07-30] MEDS: enoxaparin 100 mg/mL Syringe 90 MG SUBCUT ×2 (00:02→12:04)
[2021-07-30] MEDS: famotidine 20 mg/2 mL INJ IVP ×2 (00:03→12:05)
[2021-07-30] MEDS: ipratropium-albuterol 3 mL Neb INHALATION ×5 (03:21→20:11)
[2021-07-30 03:50] LABS: ABG PCO2 41.5 mmHg (35-45); ABG PH Result 7.41 (7.35-7.45); Alveolar-Arterial Oxygen Gradi 33.6 mmHg (5-10); Arterial Blood Gas Hematocrit 40.3 % (37-47); Base Excess ABG 1.4 mmol/L (-2.0-2.0); Blood Gas Allen Test Pos; Blood Gas Sample Site Radial, right; Blood Gas Sample Type Arterial; Carboxyhemoglobin 0.3 %THgb (0.4-20.1); HCO3 ABG 26.2 mmol/L (22-26); HGB O2 Sat 88.5 % (95-100); Ionized Calcium Level - ABG 1.2 mmol/L (1.1-1.4); Methemoglobin 0.1 % (0.4-1.5); Oxygen Device NC; Oxygen Saturation ABG 88.8; PO2 ABG 49.8 mmHg (80.0-100.0); Potassium Level - ABG 3.8 mmol/L (3.5-5.0); Total Hemoglobin 13.1 g/dL (12-16)
[2021-07-30] MEDS: piperacillin-tazobactam 3.375 GM in sodium chloride 0.9% (plus) 50 ML IV ×3 (04:06→18:54)
[2021-07-30 04:34] LABS: Blood Urea Nitrogen 28 mg/dL (8-23); Calcium 7.7 mg/dL (8.5-10.5); Carbon Dioxide 24 mmol/L (22-29); Chloride 109 mmol/L (98-107); Glucose 143 mg/dL (65-115); Osmolality Calculated 304 mOsm/kg (285-295); Sodium 143 mmol/L (136-145)
[2021-07-30 04:38] LABS: Anion Gap 14.4 (5-19); Potassium 4.4 mmol/L (3.5-5.1)
[2021-07-30 08:16] LABS: Basophils % 0.3 %; Hematocrit 44.5 % (37.0-47.0); Hemoglobin 13.1 g/dL (11.5-15.3); Lymphocytes # 0.5 10^3/uL (0.8-4.8); Lymphocytes % 4.8 %; Mean Corpuscular HGB Conc 29.4 g/dL (30.0-36.0); Mean Corpuscular Hemoglobin 27.9 pg (28.0-34.0); Mean Corpuscular Volume 94.9 fl (81-99); Mean Platelet Volume 10.7 fL (7.4-10.4); Monocytes # 0.6 10^3/uL (0.2-0.9); Monocytes % 5.4 %; Neutrophils # 9.04 10^3/uL (1.8-7.7); Neutrophils % 85.7 %; Nucleated Red Blood Cells % 0 %; Platelet Count 229 10^3/cmm (130-400); Red Blood Count 4.69 10^6/uL (4.1-5.3); Red Cell Distribution Width 14.1 % (12.1-15.1); White Blood Count 10.6 10^3/uL (4.0-10.0)
[2021-07-30] MEDS: ascorbic acid 500 mg Tablet 1000 MG PO ×2 (09:38→17:02)
[2021-07-30] MEDS: zinc gluconate 50 mg Tablet PO (09:38)
[2021-07-30] MEDS: cholecalciferol (vitamin D3) 1,000 unit Tablet 1000 UNIT PO (09:38)
[2021-07-30] MEDS: cyanocobalamin 1,000 mcg Tablet 1000 MCG PO (09:39)
--- NOTE | 2021-07-30 12:37 | PM.PN ---
Subjective Subjective: Interval history: Seen this morning. Patient's FiO2 came down to 80% with 40 L of flow today. She did have some nosebleed which got better later on. She feels great. Vitals/I&O/Wt Last Vital Signs Temp 98.8 F 07/29/21 13:00 Pulse 61 07/30/21 11:30 Resp 24 H 07/30/21 11:15 BP 150/63 07/30/21 06:00 Pulse Ox 92 07/30/21 11:15 07/29/21 07/30/21 07/30/21 22:59 06:59 14:59 Intake Total 550 / 1320 850 / 2170 50 / 50 Output Total 1 / 326 401 / 727 Balance 549 / 994 449 / 1443 50 / 50 Weight last 48 hrs Weight 92.986 kg Physical Exam Narrative: EXAM NARRATIVE: General: Alert oriented x3, patient seen sitting up in bed on heated high flow, no acute respiratory distress, appears comfortable on 85% FiO2. HEENT: Normocephalic, atraumatic, EOMI, Cardio: Regular rate rhythm, normal S1-S2, no murmurs rubs gallops, Respiratory: Diminished bilateral air entry, minimal rhonchi present throughout lung montanez. Coarse breath sounds. GI: Abdomen soft, nontender, nondistended, bowel sounds + Behavior: Appropriate and cooperative Extremities:no edema, no cyanosis Physical exam unchanged compared to yesterday and FiO2 requirement has stayed the same.. Data : 07/30/21 03:25 07/30/21 03:25 A&P Assessment and plan (1) Acute metabolic encephalopathy: Status: Acute (2) Pneumonia due to COVID-19 virus: Status: Acute (3) Cough: Status: Acute (4) Hypoxia: Status: Acute Additional A&P Information #COVID-19 pneumonia #Acute respiratory failure with hypoxia ?Patient did require BiPAP initially and she is off that now. She is on heated high flow. Remdesivir 5 days completed. Patient does have bradycardia overnight while sleeping. I have a suspicion of obstructive sleep apnea. She will benefit from a sleep study as an outpatient. Heart rate does remain stable during the day and when she is awake. D-Dimer is negative. -Continue patient on heated high flow and escalate versus de-escalate oxygen therapy as required. Continue Solu-medrol 60 q8 hours. She is s/p actemra 07/22. Remdesivir completed 07/28/2021.. Being covered with vanc and zosyn empirically as well. COntinue vitamins. DVT prophylaxis: Full dose Lovenox. Creatinine is normal. Son updated over the phone 07/29/2021 Prognosis guarded. Pt's code status remains DNI. Ok to do CPR if needed. Daughter and son both aware. Attestations Medical Necessity Statement*: > 48 hr stay Coding Level of Care Code Acute Asset Protection Associate for [facility] Fwd Diagnoses Acute metabolic encephalopathy G93.41 Pneumonia due to COVID-19 virus U07.1; J12.82 Cough R05.9 Hypoxia R09.02
[2021-07-30 14:29] LABS: Vancomycin Trough 13.4 ug/mL (10-15)
[2021-07-30] MEDS: vancomycin 1,500 MG/300 ML PIGGYBACK 200 MG IV (15:00)
--- NOTE | 2021-07-30 19:44 | PC.NURSE ---
1900 Report received, assessment completed. VSS. HHFNC 40L/80%. O2 sat +90%. Pt AAOx4, makes all needs known. Up in chair, clwr, no issues noted. Will monitor.
[2021-07-31] VITALS (38 sets, daily range): BP systolic 129–162; BP diastolic 57–83; PULSE 47–88; RESP 8–34; TEMP 36.4–36.7; O2SAT 89–96
[2021-07-31] MEDS: enoxaparin 100 mg/mL Syringe 90 MG SUBCUT ×2 (00:17→13:35)
[2021-07-31] MEDS: famotidine 20 mg/2 mL INJ IVP ×2 (00:17→13:35)
[2021-07-31] MEDS: piperacillin-tazobactam 3.375 GM in sodium chloride 0.9% (plus) 50 ML IV ×3 (03:09→18:25)
[2021-07-31 04:47] LABS: Basophils % 0.2 %; Eosinophils % 0.1 %; Hematocrit 38.6 % (37.0-47.0); Hemoglobin 12.2 g/dL (11.5-15.3); Lymphocytes # 0.5 10^3/uL (0.8-4.8); Lymphocytes % 5.1 %; Mean Corpuscular HGB Conc 31.6 g/dL (30.0-36.0); Mean Corpuscular Hemoglobin 27.2 pg (28.0-34.0); Mean Corpuscular Volume 86.2 fl (81-99); Mean Platelet Volume 10.2 fL (7.4-10.4); Monocytes # 0.6 10^3/uL (0.2-0.9); Monocytes % 5.5 %; Neutrophils # 8.99 10^3/uL (1.8-7.7); Nucleated Red Blood Cells % 0 %; Platelet Count 212 10^3/cmm (130-400); Red Blood Count 4.48 10^6/uL (4.1-5.3); Red Cell Distribution Width 13.5 % (12.1-15.1); White Blood Count 10.4 10^3/uL (4.0-10.0)
[2021-07-31 05:03] LABS: Anion Gap 10.3 (5-19); Blood Urea Nitrogen 21 mg/dL (8-23); Calcium 7.5 mg/dL (8.5-10.5); Carbon Dioxide 25 mmol/L (22-29); Chloride 110 mmol/L (98-107); Glucose 188 mg/dL (65-115); Magnesium 1.9 mg/dL (1.7-2.3); Osmolality Calculated 300 mOsm/kg (285-295); Potassium 4.3 mmol/L (3.5-5.1); Sodium 141 mmol/L (136-145)
--- NOTE | 2021-07-31 06:07 | PC.NURSE ---
Shift Note Frequent safety and comfort rounds continue. Orders and/or nursing care completed as indicated. Patient monitored for response to intervention and treatment(s). Education provided includes treatment plan, medications and oxygen needs. Pt has had small, steady nosebleed all night long. Lanolin ointment applied to inside of nose. pillow case changed out d/t bleeding. No other issues noted. Will continue to monitor.
[2021-07-31] MEDS: ipratropium-albuterol 3 mL Neb INHALATION ×4 (07:37→20:38)
[2021-07-31] MEDS: vancomycin 1,500 MG/300 ML PIGGYBACK 200 MG IV (08:06)
[2021-07-31] MEDS: cholecalciferol (vitamin D3) 1,000 unit Tablet 1000 UNIT PO (08:06)
[2021-07-31] MEDS: cyanocobalamin 1,000 mcg Tablet 1000 MCG PO (08:06)
[2021-07-31] MEDS: zinc gluconate 50 mg Tablet PO (08:06)
[2021-07-31] MEDS: ascorbic acid 500 mg Tablet 1000 MG PO ×2 (08:06→18:25)
--- NOTE | 2021-07-31 09:13 | PC.CHAP ---
Pastoral Care Encounter/Spiritual Assessment Type of Contact [] Declined resolution expert visit [] Patient/Family/Request visit [] Outpatient visit [] Follow-up visit [] Physician referral [] Code/Alert [x] Routine visit [] Staff referral [] Actively dying [] Patient sleeping [] Family support [] [] Out of room [] Palliative care [] [] Receiving care in room [] Pre-surgical visit [] Trauma [] Long length of stay [x] ICU visit [x] Other: setting in chair.. quarantined Relational/Emotional Strength [] Patient feels connected with others/family/visitors/staff [] Distress [] Loneliness/isolation [] Abandonment Spirituality of Patient [] Person of Sanam [] Attends Druze of their Sanam [] Believes in Prayer [] Reads Bible or Judaism materials [] There are Spiritual issues to be addressed Face Burler Interventions [x] Prayer [] Active listening [] Non-anxious presence [] Spiritual/emotional support [] Crisis/trauma care [] Spiritual counseling [] Bereavement support [] Provided bereavement packet [] Provided Bible/devotional materials [] Provided toy/stuffed animal, coloring book to patient or family member [] Provided Communion [] Anointing/[place] [] Salvation [x] Completed spiritual assessment [] Other: Impact on Illness or Injury [] Angry [] Fearful [] Anxious [] Often cries [] Exhaustion [] Unable to work [] Unable to attend judaism [] Unable to walk/stand [] Unable to read [] Unable to drive [] Unable to eat/drink [] Unable to sleep [] Unable to be with family [] Patient intubated [] Other: Summary Time spent with patient
--- NOTE | 2021-07-31 10:34 | P.PN_ITS ---
Subjective Subjective: Interval history: Pt reportedly feels better. Discussed wih RT. She is on 75% Fio2 and 40L flow. Nose not bleeding when seen. Pt does desaturate with movement or any exertion. SHe was able to sleep on her side last night Vitals/I&O/Wt Last Vital Signs Temp 97.6 F 07/31/21 07:00 Pulse 75 07/31/21 09:00 Resp 24 H 07/31/21 09:00 BP 144/73 07/31/21 09:00 Pulse Ox 92 07/31/21 09:00 07/30/21 07/31/21 07/31/21 22:59 06:59 14:59 Intake Total 870 / 1720 290 / 2010 350 / 350 Output Total 350 / 1150 350 / 350 Balance 520 / 570 290 / 860 0 / 0 Weight last 48 hrs Weight 94.546 kg Weight 92.986 kg Physical Exam Narrative: EXAM NARRATIVE: General: Alert oriented x3, patient seen sitting up in recliner appearing comfortable Cardio: Regular rate rhythm, normal S1-S2, no murmurs Respiratory: Diminished bilateral air entry, minimal rhonchi present at bases, rest of lungs clear today. No conversational dyspnea present but does desaturate to 86% when talking. GI: Abdomen soft, nontender, nondistended, bowel sounds + Extremities:no edema, no cyanosis Data : 07/31/21 04:18 07/31/21 04:18 A&P Assessment and plan (1) Acute metabolic encephalopathy: Status: Acute (2) Pneumonia due to COVID-19 virus: Status: Acute (3) Cough: Status: Acute (4) Hypoxia: Status: Acute Additional A&P Information #COVID-19 pneumonia #Acute respiratory failure with hypoxia ?Patient did require BiPAP initially and she is off that now. She is on heated high flow. Remdesivir 5 days completed. Patient does have bradycardia overnight while sleeping. I have a suspicion of obstructive sleep apnea. She will benefit from a sleep study as an outpatient. Heart rate does remain stable during the day and when she is awake. D-Dimer is negative. -Continue patient on heated high flow and escalate versus de-escalate oxygen therapy as required. Continue Solu-medrol 60 q8 hours. She is s/p actemra 07/22. Remdesivir completed 07/28/2021.. Being covered with vanc and zosyn empirically as well. COntinue vitamins. DVT prophylaxis: Full dose Lovenox. Creatinine is normal. Son updated over the phone 07/29/2021 Pt's code status remains DNI. Ok to do CPR if needed. Daughter and son both aware. Attestations Medical Necessity Statement*: > 48 hour stay. Coding Level of Care Code Acute Software Development Engineer for [facility] Fwd Diagnoses Acute metabolic encephalopathy G93.41 Pneumonia due to COVID-19 virus U07.1; J12.82 Cough R05.9 Hypoxia R09.02
--- NOTE | 2021-07-31 13:53 | PC.SOCIAL ---
IMM UPDATED IMM dated and initialed and copy placed in pts room
--- NOTE | 2021-07-31 15:48 | PC.RESP ---
RT Shift Note Frequent safety and respiratory rounds continue. Orders completed as indicated. Patient monitored pre and post treatments throughout shift. Patient [Did.] tolerate treatments appropriately. Condition [Improved.]. Patient and/or industrial sales representative educated on respiratory treatment and medications. Patient and/or industrial sales representative [verbalized understanding]. Will continue to monitor patient progress.
[2021-08-01] VITALS (39 sets, daily range): BP systolic 98–149; BP diastolic 43–104; PULSE 47–108; RESP 13–34; TEMP 36.6–37.1; O2SAT 80–100; BMI 31.6
[2021-08-01] MEDS: famotidine 20 mg/2 mL INJ IVP ×2 (00:03→13:25)
[2021-08-01] MEDS: enoxaparin 100 mg/mL Syringe 90 MG SUBCUT ×2 (00:03→13:25)
[2021-08-01] MEDS: vancomycin 1,500 MG/300 ML PIGGYBACK 200 MG IV ×2 (02:17→21:55)
--- NOTE | 2021-08-01 02:50 | PC.NURSE ---
Report given to Elizabeth ABARCA
[2021-08-01] MEDS: piperacillin-tazobactam 3.375 GM in sodium chloride 0.9% (plus) 50 ML IV ×3 (03:03→18:26)
[2021-08-01 05:06] LABS: Basophils % 0.1 %; Eosinophils % 0.2 %; Hematocrit 38.4 % (37.0-47.0); Hemoglobin 12.2 g/dL (11.5-15.3); Lymphocytes # 0.6 10^3/uL (0.8-4.8); Lymphocytes % 6.1 %; Mean Corpuscular HGB Conc 31.8 g/dL (30.0-36.0); Mean Corpuscular Hemoglobin 27.4 pg (28.0-34.0); Mean Corpuscular Volume 86.3 fl (81-99); Mean Platelet Volume 10.4 fL (7.4-10.4); Monocytes # 0.5 10^3/uL (0.2-0.9); Neutrophils # 7.69 10^3/uL (1.8-7.7); Neutrophils % 85.4 %; Nucleated Red Blood Cells % 0 %; Platelet Count 207 10^3/cmm (130-400); Red Blood Count 4.45 10^6/uL (4.1-5.3); Red Cell Distribution Width 13.5 % (12.1-15.1)
[2021-08-01 05:33] LABS: Anion Gap 13.6 (5-19); Blood Urea Nitrogen 19 mg/dL (8-23); Calcium 8.1 mg/dL (8.5-10.5); Carbon Dioxide 24 mmol/L (22-29); Chloride 108 mmol/L (98-107); Glucose 152 mg/dL (65-115); Magnesium 1.9 mg/dL (1.7-2.3); Osmolality Calculated 297 mOsm/kg (285-295); Potassium 4.6 mmol/L (3.5-5.1); Sodium 141 mmol/L (136-145)
--- NOTE | 2021-08-01 05:57 | PC.NURSE ---
Shift Note Frequent safety and comfort rounds continue. Orders and/or nursing care completed as indicated. Patient monitored for response to intervention and treatment(s). Education provided includes medication and oxygen requirements. Patient verbalized understanding of teaching. Patient had uneventful night, remains on heated high flow 40L and 70% FiO2. Will continue to monitor.
[2021-08-01] MEDS: ipratropium-albuterol 3 mL Neb INHALATION ×3 (07:51→15:04)
[2021-08-01] MEDS: ascorbic acid 500 mg Tablet 1000 MG PO ×2 (08:19→17:58)
[2021-08-01] MEDS: zinc gluconate 50 mg Tablet PO (08:19)
[2021-08-01] MEDS: cyanocobalamin 1,000 mcg Tablet 1000 MCG PO (08:19)
[2021-08-01] MEDS: cholecalciferol (vitamin D3) 1,000 unit Tablet 1000 UNIT PO (08:19)
--- NOTE | 2021-08-01 10:06 | XR_ITS ---
WS: [id number] Portable AP upright chest, 08/01/2021 Clinical Data: rule out pulm edema Comparison: Portable chest, 07/26/2021. Findings: The bilateral pulmonary opacities remain the same. The right lower lobe is relatively clear . The heart is enlarged. The pulmonary vascularity is not increased. No evidence of pulmonary edema i s seen. The aortic arch and descending thoracic aorta show tortuosity. Monitor leads are on the chest wall. There is osteoarthritis of the right shoulder joint. XR/XR chest 1V portable [id number] Impression: 1. Bilateral pulmonary opacities most consistent with pneumonia. 2. Cardiomegaly and atherosclerosis. 3. No evidence of pulmonary edema.
[2021-08-01] MEDS: acetaminophen 325 mg Tablet 650 MG PO (10:30)
[2021-08-01] MEDS: FUROsemide 10 mg/mL SDV 4mL 40 MG IVP (10:30)
--- NOTE | 2021-08-01 10:57 | PC.RESP ---
RT Shift Note Frequent safety and respiratory rounds continue. Orders completed as indicated. Patient monitored pre and post treatments throughout shift. Patient [Did.] tolerate treatments appropriately. Condition [.DidNotChange]. Patient and/or field representatives director educated on respiratory treatment and medications. Patient and/or field representatives director [verbalized understanding]. Will continue to monitor patient progress.
--- NOTE | 2021-08-01 11:13 | P.PN_ITS ---
Subjective Subjective: Interval history: This morning. It is patient's birthday today and she is very happy. XR ordered today. She is on 100 FIO2 right now to get boosted. Her actual requirement is lower. Vitals/I&O/Wt Last Vital Signs Temp 98.0 F 08/01/21 04:00 Pulse 88 08/01/21 10:46 Resp 22 H 08/01/21 10:46 BP 145/62 08/01/21 06:00 Pulse Ox 94 08/01/21 10:46 07/31/21 08/01/21 08/01/21 22:59 06:59 14:59 Intake Total 690 / 1890 300 / 2190 50 / 50 Output Total 750 / 1600 350 / 1950 Balance -60 / 290 -50 / 240 50 / 50 Weight last 48 hrs Weight 94.489 kg Weight 94.546 kg Physical Exam Narrative: EXAM NARRATIVE: General: Alert oriented x3, patient seen sitting up in recliner appearing comfortable appearing very happy. Cardio: Regular rate rhythm, normal S1-S2, no murmurs Respiratory: Diminished bilateral air entry, minimal rhonchi present at bases, rest of lungs clear today. Does have conversational dyspnea. GI: Abdomen soft, nontender, nondistended, bowel sounds + Extremities:no edema, no cyanosis Data : 08/01/21 04:25 08/01/21 04:25 A&P Assessment and plan (1) Acute metabolic encephalopathy: Status: Acute (2) Pneumonia due to COVID-19 virus: Status: Acute (3) Cough: Status: Acute (4) Hypoxia: Status: Acute Additional A&P Information #COVID-19 pneumonia #Acute respiratory failure with hypoxia ?Patient did require BiPAP initially and she is off that now. She is on heated high flow. Remdesivir 5 days completed. Patient does have bradycardia overnight while sleeping. I have a suspicion of obstructive sleep apnea. She will benefit from a sleep study as an outpatient. Heart rate does remain stable during the day and when she is awake. D-Dimer is negative. -Continue patient on heated high flow and escalate versus de-escalate oxygen therapy as required. We will try Bipap today. I will also give lasix 40 IV one time dose. Continue Solu-medrol 60 q8 hours. She is s/p actemra 07/22. Remdesivir c ompleted 07/28/2021.. Being covered with vanc and zosyn empirically as well. COntinue vitamins. Check MRSA PCR. If negative, deescalate vancomycin. Discussed with Dr. Rice to discuss as curbside advice. DVT prophylaxis: Full dose Lovenox. Creatinine is normal. Pt's code status remains DNI. Ok to do CPR if needed. Daughter and son both aware. Attestations Medical Necessity Statement*: > 48 hour stay. Coding Level of Care Code Acute Profiling Machine Set Up Operator Tool for [facility] Fwd Diagnoses Acute metabolic encephalopathy G93.41 Pneumonia due to COVID-19 virus U07.1; J12.82 Cough R05.9 Hypoxia R09.02
--- NOTE | 2021-08-01 14:05 | PC.NURSE ---
Updated Hannah, daughter, Via telephone on pt's condition and progress.
--- NOTE | 2021-08-01 19:05 | PC.NURSE ---
Report received from erick RN. Patient is sitting up in the chair watching TV. Zosyn infusing to L AC IV. Patient is on 10L HFNC and is tolerating well. All vital signs are stable. Patient denies any pain, needs, or requests at this time. Will continue to monitor.
--- NOTE | 2021-08-01 19:18 | PC.NURSE ---
Shift Note; Today is pt's birthday. She as been smiling most of the day, and appears to be in good mood. She as sat up in chair all shift. She started the day off with heated high flow, She had it at 100% on 50 liters after getting out of bed, slow to recover her oxygenation. She was having nose bleeds. It was decided to try BiPap which she was able to wear for a couple of hours at 55% FIO2, she then had a panic attack and Bipap replaced with HHF. Lasix 40mg admin IV. Pt has had 2425ml output of urine which is now pale yellow. her breathing status is much improved, she is now on high flow nasal cannula at 10lpm. She has ate well. She has had 2 Bm today as well. Frequent safety and comfort rounds continue. Orders and/or nursing care completed as indicated. Patient monitored for response to intervention and treatment(s). Education provided includes Lovenox, deep breathing, Lanolin, Flutter valve and IS. Patient and/or electroplating sales representative verbalizes understanding of plan of care, medications and pt's progress. . Will continue to monitor.
[2021-08-02] VITALS (19 sets, daily range): BP systolic 98–139; BP diastolic 43–85; PULSE 55–105; RESP 11–45; TEMP 36.5–37.2; O2SAT 88–99
[2021-08-02] MEDS: famotidine 20 mg/2 mL INJ IVP ×2 (00:10→12:19)
[2021-08-02] MEDS: enoxaparin 100 mg/mL Syringe 90 MG SUBCUT ×2 (00:10→12:19)
[2021-08-02] MEDS: piperacillin-tazobactam 3.375 GM in sodium chloride 0.9% (plus) 50 ML IV (03:20)
[2021-08-02 03:57] LABS: ABG PCO2 43.8 mmHg (35-45); ABG PH Result 7.43 (7.35-7.45); Alveolar-Arterial Oxygen Gradi 3.8 mmHg (5-10); Arterial Blood Gas Hematocrit 39.3 % (37-47); Base Excess ABG 4.2 mmol/L (-2.0-2.0); Blood Gas Allen Test Pos; Blood Gas Sample Site Radial, left; Blood Gas Sample Type Arterial; Carboxyhemoglobin 0.6 %THgb (0.4-20.1); HCO3 ABG 29.1 mmol/L (22-26); HGB O2 Sat 93.7 % (95-100); Ionized Calcium Level - ABG 1.1 mmol/L (1.1-1.4); Methemoglobin 0.6 % (0.4-1.5); Oxygen Device NC; Oxygen Saturation ABG 94.8; PO2 ABG 67.9 mmHg (80.0-100.0); Potassium Level - ABG 3.9 mmol/L (3.5-5.0); Total Hemoglobin 12.8 g/dL (12-16)
[2021-08-02 05:42] LABS: Basophils % 0.1 %; Eosinophils % 0.1 %; Hemoglobin 12.6 g/dL (11.5-15.3); Lymphocytes # 0.4 10^3/uL (0.8-4.8); Lymphocytes % 4.6 %; Mean Corpuscular HGB Conc 31.5 g/dL (30.0-36.0); Mean Corpuscular Hemoglobin 27.8 pg (28.0-34.0); Mean Corpuscular Volume 88.1 fl (81-99); Mean Platelet Volume 10.6 fL (7.4-10.4); Monocytes # 0.5 10^3/uL (0.2-0.9); Monocytes % 4.9 %; Neutrophils # 8.21 10^3/uL (1.8-7.7); Neutrophils % 89.1 %; Nucleated Red Blood Cells % 0 %; Platelet Count 184 10^3/cmm (130-400); Red Blood Count 4.54 10^6/uL (4.1-5.3); Red Cell Distribution Width 13.7 % (12.1-15.1); White Blood Count 9.2 10^3/uL (4.0-10.0)
[2021-08-02 05:54] LABS: Anion Gap 17.4 (5-19); Blood Urea Nitrogen 23 mg/dL (8-23); Calcium 8.4 mg/dL (8.5-10.5); Carbon Dioxide 24 mmol/L (22-29); Chloride 106 mmol/L (98-107); Glucose 181 mg/dL (65-115); Magnesium 1.8 mg/dL (1.7-2.3); Osmolality Calculated 304 mOsm/kg (285-295); Potassium 4.4 mmol/L (3.5-5.1); Sodium 143 mmol/L (136-145)
--- NOTE | 2021-08-02 06:10 | PC.NURSE ---
Shift note Patient's night has been uneventful. Assisted the patient back to bed and into a prone position. Patient tolerated well for approximately 2 hours and then switched to a side lying position. Assisted the patient to the BSC three times. Patient's SpO2 would drop into the high 80's with ambulation but she quickly recovered. Patient's vital signs remained stable all night. Patient denies any pain, needs, or requests at this time.
--- NOTE | 2021-08-02 08:00 | XR_ITS ---
WS: [id number] Portable AP upright chest, 08/02/2021 Clinical Data: Follow up Comparison: Portable chest, 08/01/2021 Findings: The bilateral patchy opacities remain the same. The heart is slightly enlarged. The aortic arch and descending thoracic aorta show tortuosity. Monitor leads are on the chest wall. XR/XR chest 1V portable [id number] Impression: No change from yesterday's portable chest.
[2021-08-02] MEDS: cyanocobalamin 1,000 mcg Tablet 1000 MCG PO (08:10)
[2021-08-02] MEDS: cholecalciferol (vitamin D3) 1,000 unit Tablet 1000 UNIT PO (08:10)
[2021-08-02] MEDS: zinc gluconate 50 mg Tablet PO (08:10)
[2021-08-02] MEDS: ascorbic acid 500 mg Tablet 1000 MG PO ×2 (08:10→17:34)
--- NOTE | 2021-08-02 09:33 | PC.SOCIAL ---
IMM UPDATED IMM dated and initialed and copy given to pt.
--- NOTE | 2021-08-02 13:24 | PM.PN ---
Subjective Subjective: Interval history: Seen this morning. 8 L nasal cannula. She feels a lot better. She had 1600 cc urine output yesterday after Lasix. She feels a lot better compared to before. Nosebleed has also improved. She will be transferred from ICU to the floor today. Vitals/I&O/Wt Last Vital Signs Temp 98.1 F 08/02/21 11:45 Pulse 84 08/02/21 11:45 Resp 18 08/02/21 11:45 BP 125/85 08/02/21 11:45 Pulse Ox 94 08/02/21 11:45 08/01/21 08/02/21 08/02/21 22:59 06:59 14:59 Intake Total 1080 / 2330 540 / 2870 790 / 790 Output Total 650 / 2675 750 / 3425 400 / 400 Balance 430 / -345 -210 / -555 390 / 390 Weight last 48 hrs Weight 93.395 kg Weight 94.489 kg Physical Exam Narrative: EXAM NARRATIVE: General: Alert oriented x3, patient seen sitting up in recliner appearing comfortable appearing very happy. Cardio: Regular rate rhythm, normal S1-S2, no murmurs Respiratory: Diminished bilateral air entry, minimal rhonchi present at bases, rest of lungs clear today. No longer having conversational dyspnea no longer having conversational dyspnea. Lung exam not much different from yesterday. GI: Abdomen soft, nontender, nondistended, bowel sounds + Extremities:no edema, no cyanosis Data : 08/02/21 04:44 08/02/21 04:44 Micro: Microbiology 08/01/21 13:50 MRSA Culture - Final Nose A&P Assessment and plan (1) Acute metabolic encephalopathy: Status: Acute (2) Pneumonia due to COVID-19 virus: Status: Acute (3) Cough: Status: Acute (4) Hypoxia: Status: Acute Additional A&P Information #COVID-19 pneumonia #Acute respiratory failure with hypoxia ?Patient did require BiPAP initially and she is off that now. She is on heated high flow. Remdesivir 5 days completed. Patient does have bradycardia overnight while sleeping. I have a suspicion of obstructive sleep apnea. She will benefit from a sleep study as an outpatient. Heart rate does we will do home oxremain stable during the day and when she is awake. D-Dimer is negative. -Continue patient on 8 L nasal cannula. De-escalate as able to. Continue Solu-medrol 60 q8 hours. She is s/p actemra 07/22. Remdesivir completed 07/28/2021.. We will stop Vanco and Zosyn today. Discussed with Dr. Rice to discuss as curbside advice. DVT prophylaxis: Full dose Lovenox. Creatinine is normal. Pt's code status remains DNI. Ok to do CPR if needed. Daughter and son both aware. Attestations Medical Necessity Statement*: 24-48 hr stay Coding Level of Care Code Acute Licensed Land Surveyor for g Fwd Diagnoses Acute metabolic encephalopathy G93.41 Pneumonia due to COVID-19 virus U07.1; J12.82 Cough R05.9 Hypoxia R09.02
--- NOTE | 2021-08-02 13:48 | PC.NURSE ---
Late note: Patient transferred to [facility] room 254 bed 1. Report given to nurse charlton and nurse barragan resumed care. Brought up via wheelchair and portable oxygen. transfer was uneventful.
[2021-08-02] MEDS: FUROsemide 10 mg/mL SDV 4mL 40 MG IVP (16:30)
[2021-08-02] MEDS: lanolin oint 7 gm 1 APPLIC TOPICAL (19:53)
[2021-08-02] MEDS: ipratropium-albuterol 3 mL Neb INHALATION (21:01)
[2021-08-03] VITALS (13 sets, daily range): BP systolic 94–128; BP diastolic 57–75; PULSE 74–99; RESP 16–18; TEMP 36.4–36.9; O2SAT 88–96
[2021-08-03] MEDS: enoxaparin 100 mg/mL Syringe 90 MG SUBCUT ×2 (01:06→14:04)
--- NOTE | 2021-08-03 05:01 | PC.NURSE ---
i reported low 02 88 to nurse
[2021-08-03 07:02] LABS: Basophils % 0.1 %; Eosinophils # 0.2 10^3/uL (0.0-0.8); Eosinophils % 2.7 %; Hematocrit 43.4 % (37.0-47.0); Hemoglobin 13.2 g/dL (11.5-15.3); Lymphocytes # 1.6 10^3/uL (0.8-4.8); Lymphocytes % 19.5 %; Mean Corpuscular HGB Conc 30.4 g/dL (30.0-36.0); Mean Corpuscular Hemoglobin 27.9 pg (28.0-34.0); Mean Corpuscular Volume 91.8 fl (81-99); Mean Platelet Volume 10.4 fL (7.4-10.4); Monocytes # 0.6 10^3/uL (0.2-0.9); Monocytes % 7.9 %; Neutrophils # 5.57 10^3/uL (1.8-7.7); Neutrophils % 68.8 %; Nucleated Red Blood Cells % 0 %; Platelet Count 198 10^3/cmm (130-400); Red Blood Count 4.73 10^6/uL (4.1-5.3); Red Cell Distribution Width 14.2 % (12.1-15.1); White Blood Count 8.1 10^3/uL (4.0-10.0)
[2021-08-03 07:20] LABS: Blood Urea Nitrogen 23 mg/dL (8-23); Calcium 8.7 mg/dL (8.5-10.5); Carbon Dioxide 26 mmol/L (22-29); Chloride 94 mmol/L (98-107); Glucose 74 mg/dL (65-115); Magnesium 1.8 mg/dL (1.7-2.3); Osmolality Calculated 272 mOsm/kg (285-295); Sodium 130 mmol/L (136-145)
[2021-08-03 07:59] LABS: Anion Gap 14.2 (5-19); Potassium 4.2 mmol/L (3.5-5.1)
[2021-08-03] MEDS: ipratropium-albuterol 3 mL Neb INHALATION (08:07)
[2021-08-03] MEDS: famotidine 20 mg Tablet PO ×2 (08:40→17:27)
[2021-08-03] MEDS: zinc gluconate 50 mg Tablet PO (08:40)
[2021-08-03] MEDS: cholecalciferol (vitamin D3) 1,000 unit Tablet 1000 UNIT PO (08:40)
[2021-08-03] MEDS: cyanocobalamin 1,000 mcg Tablet 1000 MCG PO (08:41)
[2021-08-03] MEDS: ascorbic acid 500 mg Tablet 1000 MG PO ×2 (08:41→17:27)
--- NOTE | 2021-08-03 13:22 | P.PN_ITS ---
Subjective Subjective: Interval history: Seen this morning. Patient reportedly feeling a lot better compared to before. She is on a liter per minute nasal cannula. She feels great and is excited to go home once her oxygen requirement comes down further. Respiratory therapy is working with her on the incentive spirometer and flutter valve. Vitals/I&O/Wt Last Vital Signs Temp 98.1 F 08/03/21 11:57 Pulse 94 08/03/21 11:57 Resp 16 08/03/21 11:57 BP 94/57 08/03/21 11:57 Pulse Ox 89 L 08/03/21 11:57 08/02/21 08/03/21 08/03/21 22:59 06:59 14:59 Intake Total 0 / 1150 240 / 1390 240 / 240 Output Total 0 / 400 400 / 800 Balance 0 / 750 -160 / 590 240 / 240 Weight last 48 hrs Weight 93.395 kg Weight 93.395 kg Physical Exam Narrative: EXAM NARRATIVE: General: Alert oriented x3, patient seen sitting up in bed Cardio: Regular rate rhythm, normal S1-S2, no murmurs Respiratory: Lungs very clear to auscultation, no wheezes no rhonchi appreciated. Slightly diminished at the bases. GI: Abdomen soft, nontender, nondistended, bowel sounds + Extremities:no edema, no cyanosis Data : 08/03/21 06:05 08/03/21 06:05 Micro: Microbiology 08/01/21 13:50 MRSA Culture - Final Nose A&P Assessment and plan (1) Acute metabolic encephalopathy: Status: Acute (2) Pneumonia due to COVID-19 virus: Status: Acute (3) Cough: Status: Acute (4) Hypoxia: Status: Acute Additional A&P Information #COVID-19 pneumonia #Acute respiratory failure with hypoxia ?Patient did require BiPAP initially and she is off that now and remained on heated high flow. Remdesivir 5 days completed. Patient does have bradycardia overnight while sleeping. I have a suspicion of obstructive sleep apnea. She will benefit from a sleep study as an outpatient. Heart rate does we will do home oxremain stable during the day and when she is awake. D-Dimer is negative. -Continue patient on 8 L nasal cannula. De-escalate as able to. Continue Solu-medrol 60 q8 hours. She is s/p actemra 07/22. Remdesivir completed 07/28/2021.. We will stop Vanco and Zosyn today. Discussed with Dr. Rice to discuss as curbside advice. DVT prophylaxis: Full dose Lovenox. Creatinine is normal. Pt's code status remains DNI. Ok to do CPR if needed. Daughter and son both aware. Attestations Medical Necessity Statement*: Greater than 24 to 48-hour stay. Once oxygen requirement comes down to 4 or 5 L she will be discharged home. Coding Level of Care Code Acute Legal Administrative Secretary for [facility] Fwd Diagnoses Acute metabolic encephalopathy G93.41 Pneumonia due to COVID-19 virus U07.1; J12.82 Cough R05.9 Hypoxia R09.02
[2021-08-03] MEDS: lactulose oral liq 20 gm/30 mL UDC PO (21:13)
[2021-08-04] VITALS (11 sets, daily range): BP systolic 96–129; BP diastolic 57–74; PULSE 61–102; RESP 16–18; TEMP 36.4–36.9; O2SAT 86–95
[2021-08-04] MEDS: enoxaparin 100 mg/mL Syringe 90 MG SUBCUT ×2 (01:38→13:19)
[2021-08-04 07:14] LABS: Anion Gap 11.1 (5-19); Blood Urea Nitrogen 19 mg/dL (8-23); Calcium 7.6 mg/dL (8.5-10.5); Carbon Dioxide 28 mmol/L (22-29); Chloride 105 mmol/L (98-107); Glucose 80 mg/dL (65-115); Osmolality Calculated 291 mOsm/kg (285-295); Potassium 4.1 mmol/L (3.5-5.1); Sodium 140 mmol/L (136-145)
[2021-08-04] MEDS: zinc gluconate 50 mg Tablet PO (08:15)
[2021-08-04] MEDS: famotidine 20 mg Tablet PO ×2 (08:15→17:19)
[2021-08-04] MEDS: ascorbic acid 500 mg Tablet 1000 MG PO ×2 (08:15→17:19)
[2021-08-04] MEDS: cyanocobalamin 1,000 mcg Tablet 1000 MCG PO (08:15)
[2021-08-04] MEDS: cholecalciferol (vitamin D3) 1,000 unit Tablet 1000 UNIT PO (08:15)
--- NOTE | 2021-08-04 08:37 | PM.PN ---
Vitals/I&O/Wt Last Vital Signs Temp 98.5 F 08/04/21 08:20 Pulse 82 08/04/21 08:26 Resp 16 08/04/21 08:26 BP 96/57 08/04/21 08:20 Pulse Ox 92 08/04/21 08:26 08/03/21 08/04/21 08/04/21 22:59 06:59 14:59 Intake Total 720 / 960 Output Total 200 / 600 Balance 720 / 560 -200 / 360 Weight last 48 hrs Weight 92.669 kg Weight 93.395 kg Data : 08/03/21 06:05 08/04/21 06:30 Coding Level of Care Code Acute Quality Improvement Consultant for [facility]
--- NOTE | 2021-08-04 11:50 | P.DS_ITS ---
Discharge Providers Date of Admission: 07/22/21 09:56 Date of Discharge: August 04, 2021 Attending Provider at Admission: Raman Reich Attending Provider at Discharge: Ashley Bhatt MD Diagnoses at Discharge Discharge Diagnosis (1) Acute metabolic encephalopathy: Status: Acute (2) Pneumonia due to COVID-19 virus: Status: Acute (3) Cough: Status: Acute (4) Hypoxia: Status: Acute Reason for Visit Reason for Visit: COVID SYMPTOMS Hospital Course Hospital Course HPI as per Dr. Reich Bhavya King is a 70 year old female with past medical history of obesity, hypertension who presents with complaints of shortness of breath. She reports that her symptoms started about 8 days ago. Initially mild they progressively got worse and described as very severe today. She reports shortness of breath, cough, chills, fever, upper respiratory symptoms, congestion. In emergency room she is severely hypoxic. She did not improve with supplemental oxygen only. She did not tolerate high flow oxygen. Eventually she was started on BiPAP. Her chest x-ray and CT revealed bilateral pneumonia consistent with Covid. Testing came back positive. The patient also has mild to moderate confusion. Unable to focus on the conversation for long. She denies any chest pain, palpitations, hemoptysis, nausea, vomiting, diarrhea. She denies history of diabetes, steroids, immunosuppression. She denies similar episodes in the past. Course Patient did require BiPAP initially and then remained on HHF for days. She was given lasix 40 IV x 2 days which helped wean her off. She is now on 6L NC today and qualified for home O2 at rest and exertion at 6L. She will be sent home today. Remdesivir 5 days completed. Actemra 1 dose given as well. She was covered with abx empirically which were stopped after few days. She was also kept on full dose lovenox during her stay empirically to cover for PE. Patient is DNI status. Patient does have bradycardia overnight while sleeping. I have a suspicion of obstructive sleep apnea. She will benefit from a sleep study as an outpatient. Patient aware of this. She will need to follow up with her PCP to set this up. D-Dimer is negative. She will be sent home in stable condition. Physical Exam Narrative: EXAM NARRATIVE: General: Alert oriented x3, patient seen sitting up in bed Cardio: Regular rate rhythm, normal S1-S2, no murmurs Respiratory: Lungs very clear to auscultation, no wheezes no rhonchi appreciated. Slightly diminished at the bases. GI: Abdomen soft, nontender, nondistended, bowel sounds + Extremities:no edema, no cyanosis Discharge Data Data Completed and Pending: Completed Studies During Hospitalization Category Date Time Status XR chest 1V lamont ble [id number] Routine Exams 08/02/21 08:00 Completed XR chest 1V lamont ble [id number] Routine Exams 07/23/21 07:00 Completed XR chest 1V lamont ble [id number] Routine Exams 07/26/21 07:00 Completed XR chest 1V lamont ble [id number] Stat Exams 08/01/21 10:06 Completed XR chest 1V lamont ble [id number] Stat Exams 07/22/21 08:40 Completed XR chest 1V lamont ble [id number] Stat Exams 07/25/21 08:20 Completed Labs from last 24 hours 08/04/21 06:30 Sodium 140 Potassium 4.1 Chloride 105 Carbon Dioxide 28 Anion Gap 11.1 BUN 19 Creatinine 0.6 GFR Calculation Not Reportable Glucose 80 Calculated Osmolal ity 291 Calcium 7.6 L Vitals: Last Vital Signs Temp 98.5 F 08/04/21 08:20 Pulse 82 08/04/21 08:26 Resp 16 08/04/21 08:26 BP 96/57 08/04/21 08:20 Pulse Ox 86 L 08/04/21 10:19 Discharge Plan Discharge Patient Disposition: Home Condition: Stable Prescriptions: New Advair Diskus 250-50 mcg/dose Blister With Device 1 puff inhalation BID.RESPIRATORY 14 Days Qty: 1 RF: 0 famotidine 20 mg Tablet 20 mg PO BID 30 Days Qty: 60 RF: 0 Continued albuterol sulfate 90 mcg/actuation HFA aerosol inhaler 2 inh inhalation Q4H Qty: 8.5 RF: 2 Discontinued ketotifen fumarate [Zaditor] 0.025 % (0.035 %) drops 1 drp ophthalmic (eye) BID Qty: 5 RF: 1 prednisone 20 mg tablet 40 mg PO DAILY 5 Days Qty: 10 RF: 0 ondansetron HCl [Zofran] 4 mg tablet 4 mg PO TID PRN (Reason: nausea and vomiting) 4 Days Qty: 12 RF: 0 acetaminophen 500 mg tablet 500 mg PO Q6H PRN (Reason: pain) 5 Days Qty: 20 RF: 0 prednisone 50 mg tablet 50 mg PO DAILY 3 Days RF: 0 levofloxacin 750 mg tablet 750 mg PO Q24H RF: 0 vitamin A 10,000 unit Capsule 10,000 unit PO DAILY RF: 0 Vitamin B-12 25 mcg Tablet 1,000 mcg PO DAILY RF: 0 cholecalciferol (vitamin D3) [Vitamin D3] 25 mcg (1,000 unit) Capsule 25 mcg PO DAILY RF: 0 Discharge Orders: Discharge Order (Routine); Ordered 08/04/21 Ordered By: Ahsley Bhatt Other Ambulatory Orders: DME: Oxygen (Order) Location: None Selected Ordered By: Ashley Bhatt Referrals: Bradly Snell FNP [Referring] - (Appt 08/08/2021 at 1:30pm) Discharge Diet: Regular Discharge Activity: Increase activity as tolerated and Oxygen as instructed Patient Instructions: Famotidine (By mouth), Fluticasone/Salmeterol (By breathing), Using Oxygen at Home (GEN), Hypoxia (GEN), COVID-19 (Coronavirus Disease 2019) (GEN), Opioid Safety Discharge Attestations Time Spent in Discharge Care*: less than 30 min Quality Metrics Clinical Quality Measures During this hospital stay, did patient experience: None Coding Level of Care Code Acute [facility] note Diagnoses Acute metabolic encephalopathy G93.41 Pneumonia due to COVID-19 virus U07.1; J12.82 Cough R05.9 Hypoxia R09.02
--- NOTE | 2021-08-04 14:29 | PC.NURSE ---
Attempted to call patient's daughter at this time. No answer. Will try again later.
--- NOTE | 2021-08-04 14:50 | PC.NURSE ---
Spoke with patient's daughter who wishes to pick patient up at 0900 in the morning. Patient would like to have her oxygen delivered before then.
--- NOTE | 2021-08-04 15:22 | PC.SOCIAL ---
IMM UPDATED IMM initialed and dated and copy given to patient
--- NOTE | 2021-08-04 19:03 | PC.NURSE ---
Report to Elisa ABARCA at this time.
--- NOTE | 2021-08-04 20:39 | PC.NURSE ---
1899 Shift report received from Kaylah ABARCA. Patient in bed awake. IV patent/SL. O2 6L HF. Denies pain/ no s/s of pain or discomfort. No needs voiced at this time.
[2021-08-05] VITALS: BP 98/59; PULSE 64; RESP 16; TEMP 36.4; O2SAT 94
[2021-08-05] MEDS: enoxaparin 100 mg/mL Syringe 90 MG SUBCUT (01:16)
[2021-08-05 04:00] VITALS: BP 112/70; PULSE 61; RESP 15; TEMP 36.5; O2SAT 95
--- NOTE | 2021-08-05 06:13 | PC.NURSE ---
Patient in bed resting. No s/s of pain or discomfort. No needs noted at this time.
[2021-08-05 07:50] VITALS: PULSE 69; RESP 18; O2SAT 91
[2021-08-05] MEDS: cholecalciferol (vitamin D3) 1,000 unit Tablet 1000 UNIT PO (08:17)
[2021-08-05] MEDS: famotidine 20 mg Tablet PO (08:17)
[2021-08-05] MEDS: zinc gluconate 50 mg Tablet PO (08:17)
[2021-08-05] MEDS: cyanocobalamin 1,000 mcg Tablet 1000 MCG PO (08:17)
[2021-08-05] MEDS: ascorbic acid 500 mg Tablet 1000 MG PO (08:18)
--- NOTE | 2021-08-05 09:15 | PC.NURSE ---
IV removed intact. Patient tolerated well. Patient is A&Ox3. Respirations even and non-labored on 6 liters of oxygen. Reviewed discharge with patient at this time. Patient verbalized understanding of discharge instructions and follow up appointments. Patient's home oxygen was brought to patient so she could use it to go home. Patient wheel chaired to private car.
[2021-08-05 10:20] VITALS: BP 110/70; PULSE 69; RESP 18; TEMP 36.7; O2SAT 92
== END 2021-08-05 09:30 | disposition home or self-care (01) | DRG 177 ==
LOC: ER 10:09 → ICU 10:13 → MEDSURG 08-02 10:53
PROVIDERS: Internal Medicine; Admitting Provider Internal Medicine; Emergency Provider Family Medicine; Visit Provider Family Medicine
DX: U07.1 COVID-19 (principal); J12.82 Pneumonia due to coronavirus disease 2019; G93.41 Metabolic encephalopathy; J96.01 Acute respiratory failure with hypoxia; I10 Essential (primary) hypertension; E66.9 Obesity, unspecified; Z68.31 Body mass index [BMI] 31.0-31.9, adult; R00.1 Bradycardia, unspecified; G47.33 Obstructive sleep apnea (adult) (pediatric)
CPT/HCPCS: 36415; 36600; 71045; 71275; 80048; 80051; 80053; 80069; 80202; 81003; 82330; 82803; 82805; 83605; 83735; 83880; 84145; 84484; 85025; 85378; 86140; 87040; 87070; 87635; 87641; 93005; 94640; 94660; 94664; 96365; 96367; 96372; 96375; 99283; 99291; J1100; J1650; J1940; J2543; J2930; J3262; J3370; J3490; Q9967